=== PATIENT | female | born 1945 | race Caucasian/White ===

== ENCOUNTER → 2021-03-05 11:41 | Outpatient (CLI) | payer MEDICARE, SELFPAY ==
--- NOTE | 2021-03-05 11:50 | DI.MG.S_ITS ---
BILATERAL DIGITAL SCREENING MAMMOGRAM 3D/2D WITH CAD: 03/05/2021 CLINICAL: Routine screening. Comparison is made to exams dated: 04/07/2019 mammogram, 03/31/2018 mammogram, and 11/13/2014 mammogram - outside location. The tissue of both breasts is heterogeneously dense. This may lower the sensitivity of mammography. Current study was also evaluated with a Computer Aided Detection (CAD) system. No significant masses, calcifications, or other findings are seen in either breast. There has been no significant interval change. IMPRESSION: NEGATIVE There is no mammographic evidence of malignancy. A 1 year screening mammogram is recommended. This exam was interpreted at Station ID: [id number]. NOTE: For mammograms, a report in lay terms will be sent to the patient. Approximately 15% of breast malignancies will not be visualized mammographically. In the management of a palpable breast mass, a negative mammogram must not discourage biopsy of a clinically suspicious lesion. Electronically Signed By: Keron [email or web address]/[email or web address]:03/05/2021 12:42:35 letter sent: Normal Exam ACR BI-RADS Category 1: Negative 3341F
== END ==
PROVIDERS: PCP Internal Medicine; Referring Provider Internal Medicine; Visit Provider Internal Medicine
DX: Z12.31 Encounter for screening mammogram for malignant neoplasm of breast (principal)
CPT/HCPCS: 77063; 77067

== ENCOUNTER → 2022-03-06 07:32 | Outpatient (CLI) | payer MEDICARE, SELFPAY ==
--- NOTE | 2022-03-06 | DI.MG.S_ITS ---
BILATERAL DIGITAL SCREENING MAMMOGRAM 3D/2D WITH CAD: 03/06/2022 CLINICAL: Routine screening. Comparison is made to exams dated: 03/05/2021 mammogram - [facility], 04/07/2019 mammogram, and 03/31/2018 mammogram - outside location. The tissue of both breasts is heterogeneously dense. This may lower the sensitivity of mammography. Current study was also evaluated with a Computer Aided Detection (CAD) system. No significant masses, calcifications, or other findings are seen in either breast. There has been no significant interval change. IMPRESSION: NEGATIVE There is no mammographic evidence of malignancy. A 1 year screening mammogram is recommended. This exam was interpreted at Station ID: [id number]. NOTE: For mammograms, a report in lay terms will be sent to the patient. Approximately 15% of breast malignancies will not be visualized mammographically. In the management of a palpable breast mass, a negative mammogram must not discourage biopsy of a clinically suspicious lesion. Electronically Signed By: Keron [email or web address]/fadia:03/06/2022 16:17:53 letter sent: Normal Exam ACR BI-RADS Category 1: Negative 3341F
== END ==
PROVIDERS: PCP Internal Medicine; Referring Provider Internal Medicine; Visit Provider Internal Medicine
DX: Z12.31 Encounter for screening mammogram for malignant neoplasm of breast (principal)
CPT/HCPCS: 77063; 77067

== ENCOUNTER → 2022-12-16 11:46 | Outpatient (CLI) | payer MEDICARE, SELFPAY ==
[2022-12-16 12:29] LABS: Add Manual Diff / Slide Review NO; Basophils Absolute Auto 100 /uL (0-100); Eosinophils Absolute Auto 500 /uL (0-450); Eosinophils Percent Auto 7.5 % (2-4); Hematocrit 40.5 % (36-46); Hemoglobin 13.8 g/dL (12.0-16.0); Lymphocytes Absolute Auto 1800 /uL (1100-4500); Lymphocytes Percent Auto 26.9 % (25-40); Mean Corpuscular HGB Conc 34.2 % (30-36); Mean Corpuscular Hemoglobin 30.8 PG (26-34); Monocytes Absolute Auto 700 /uL (0-900); Monocytes Percent Auto 10.7 % (3-14); Neutrophils Absolute Auto 3600 /uL (1500-7000); Neutrophils Percent Auto 53.9 % (50-75); Platelet Count 353 X10^3/uL (150-400); Red Cell Distribution Width 13.2 % (11.6-14.8); White Blood Cell Count 6.8 X10^3/uL (4.5-11.0)
[2022-12-16 12:37] LABS: Prothrombin Time 11.5 SECONDS (10.1-12.7)
[2022-12-16 12:38] LABS: Appearance Urine UA CLEAR; Bilirubin Urine UA NEGATIVE (NEGATIVE); Color Urine UA YELLOW; Glucose Urine UA NEGATIVE (Negative); Ketones Urine UA NEGATIVE (NEGATIVE); Leukocyte Esterase Urine UA NEGATIVE (NEGATIVE); Nitrite Urine UA NEGATIVE (Negative); Occult Blood Urine UA NEGATIVE (Negative); Protein Urine UA NEGATIVE (Negative); Specific Gravity Urine UA 1.025 (1.000-1.035); Urobilinogen Urine UA 0.2 E.U./dL (0.2)
[2022-12-16 12:40] LABS: PTT Partial Thromboplastin Tim 29 SECONDS (26-36)
[2022-12-16 12:48] LABS: Alanine Aminotransferase 20 IU/L (<35); Albumin 4.4 g/dL (3.5-5.0); Albumin Globulin Ratio 1.3 (1.0-2.8); Alkaline Phosphatase 77 U/L (38-126); Aspartate Aminotransferase 25 IU/L (14-36); BUN Creatinine Ratio 26.8 (6-22); Bilirubin Total 0.6 mg/dL (0.2-1.3); Blood Urea Nitrogen 30 mg/dL (7-17); Calcium 9.6 mg/dL (8.4-10.2); Carbon Dioxide 26 mmol/L (22-32); Chloride 104 mmol/L (98-107); Estimated Glomerular Filt Rate 51 mL/min (>60); Globulin 3.4 g/dL (1.7-4.1); Glucose 84 mg/dL (80-110); HEMOLYSIS < 15 (0-50); Potassium 5.1 mmol/L (3.4-5.1); Sodium 138 mmol/L (137-145); Total Protein 7.8 g/dL (6.3-8.2)
[2022-12-16 12:56] LABS: Bacteria Urine None Seen; Culture Indicated Urine Cult Not Indicated; Hyaline Casts Urine 1-5/LPF; RBC Urine None Seen (0-5/HPF); Squamous Epithelial Cell Urine 5-10 /HPF (0-5/HPF); WBC Urine 1-5/HPF (0-5/HPF); pH Urine UA 5.5 (4.5-8.0)
[2022-12-16 14:23] LABS: Hemoglobin A1C% w Est Avg Glu 5.8 % (4.0-6.0)
== END ==
PROVIDERS: PCP Internal Medicine; Referring Provider Orthopaedic Surgery; Visit Provider Orthopaedic Surgery
DX: Z01.818 Encounter for other preprocedural examination (principal); Z51.81 Encounter for therapeutic drug level monitoring; R73.9 Hyperglycemia, unspecified; Z01.812 Encounter for preprocedural laboratory examination; N39.0 Urinary tract infection, site not specified
CPT/HCPCS: 36415; 80053; 81001; 83036; 85025; 85610; 85730; 93005; 93010

== ENCOUNTER 2023-01-19 12:57 | Day surgery (SDC) | payer MEDICARE, SELFPAY ==
[2023-01-06 08:44] VITALS: BMI 29.0
[2023-01-19] VITALS (14 sets, daily range): BP systolic 98–178; BP diastolic 41–88; PULSE 66–84; RESP 14–20; TEMP 35.7–36.2; O2SAT 95–99; BMI 28.5
--- NOTE | 2023-01-19 06:00 | DI.RAD.S_ITS ---
PROCEDURE: XR HIP W PEL IF DONE RT 2V INDICATIONS: prosthesis placement TECHNIQUE: 2 intraoperative fluoroscopic views of pelvis and right hip were acquired. COMPARISON: None. FINDINGS: Intraoperative fluoroscopic images shows right total hip arthroplasty in progress. Right hip alignment is anatomic. IMPRESSION: Fluoro guidance was provided intraoperatively for right total hip arthroplasty. Dictated by: Saw Leach M.D. on 01/19/2023 at 17:47 Approved by: Saw Leach M.D. on 01/19/2023 at 17:48
[2023-01-19] MEDS: VANCOMYCIN 1,000 MG/200 ML PIGGYBACK 200 MG IV (13:26)
[2023-01-19] MEDS: LACTATED RINGERS 1,000 ML 42 ML IV ×2 (13:29→16:25)
[2023-01-19] MEDS: ACETAMINOPHEN 325 MG TABLET 975 MG PO (13:29)
[2023-01-19] MEDS: CELECOXIB 200 MG CAPSULE PO (13:29)
[2023-01-19] MEDS: PREGABALIN 75 MG CAPSULE PO (13:29)
--- NOTE | 2023-01-19 14:00 | PM.PREOP ---
Pre-operative Note Interval Note History & Physical reviewed/Exam performed by Physician: Yes Changes to H&P: No
--- NOTE | 2023-01-19 14:01 | P.OP_ITS ---
Operative Date/Time/Diagnoses Date of procedure: 01/19/23 Time of procedure: 14:30 Pre-op diagnosis: right hip OA, severe scoliosis lumbar Post-op diagnosis: same Procedure & Clinicians Procedure: Right total hip arthroplasty anterior approach Same procedure as scheduled: Yes Indications: The patient has had progressively worsening right hip pain with radiographic changes consistent with arthritis. Non-operative management has failed and the patient has requested total hip replacement. The risks, benefits and alternatives to surgery were discussed with the patient prior to proceeding. She is a complicated patient as she has a severe scoliosis and decreased range of motion into her lumbar spine. The plan is for probable dual mobility because of anticipated higher than normal risk for postoperative instability. Risks discussed included, but were not limited to, failure to relieve pain, leg length discrepancy, dislocation, stiffness, infection, nerve damage, deep venous thrombosis, pulmonary embolism, stroke, coma, heart attack, permanent paralysis and , as well as the potential need for eventual revision of the prosthet ic. Surgeon: Leela Barrios Boiler Coverer: Shyanne Wood Anesthesia Type: General and Spinal Operative Notes Findings: Severe right hip osteoarthritis, soft bone, adequate stability Closure Type: primary Specimen(s): none sent Prosthetic devices, grafts, tissues, transplants, or devices: Barrios and nephew anthology size 5 standard offset, 52 mm R3 cup, 28 x -3 dual mobility, 40 x 52 mm Oxinium head, one 6.5 mm screw Estimated Blood Loss (mL): 250 Blood products transfused: none Procedure in detail: The patient was brought to the operating room. Patient was carefully positioned in the supine position. Time-out was performed and antibiotics were given. Anest hesia was induced. She was positioned in the on the table in order to allow hyperextension of the hip. The right lower extremity was prepped and draped in a standard sterile fashion. An anterior right hip incision was made 1 fingerbreadth lateral to the anterior superior iliac spine and extended distally towards the greater trochanter. Dissection was carried out through skin and subcutaneous tissues. Superficial hemostasis was achieved. The fascia over the tensor fascia keily was defined and incised with a knife. Two Allis clamps were used to grasp the fascia. Tensor fascia keily was retracted laterally. A gelpi retractor was placed. Dissection was carried out down along the neck. The circumflex vessels were carefully identified and cauterized with the Aqua Mantis. There was good visualization of the femoral neck. A Cobra was placed superior to the neck and the gluteus fibers were carefully stripped from that superior aspect of the capsule. A 2nd retractor was placed along the inferior aspect of the neck. The rectus insertion along the capsule was partially released. A 3rd retractor that was then gently placed over the rim of the acetabulum under the rectus. Capsule was carefully incised and released from the intertrochanteric line circumferentially superior to the mid sagittal line and inferiorly to the mid sagittal line until the lesser trochanter was palpable. A tag stitch was placed both in the superior and inferior limb of the capsular insertion. Along the acetabulum capsule was also released up to the mid sagittal 12:00 position. A portion of the labrum was resected. A saw was used to perform an osteotomy at the level of the intertrochanteric line and the junction of the superior femoral neck leaving approximately 1 finger breath of residual inferior neck above the lesser trochanter. A 2nd cut was made along the femoral neck at the base of the head and a napkin ring of neck was removed. Corkscrew was placed in the femoral head and the head was removed without difficulty. Retractors were then repositioned around the acetabulum. Residual labrum was resected and additional osteophytes were removed. A reamer that was 4 mm below the templated size was placed by hand in the acetabulum and it was reamed to centralize the acetabulum. It was then reamed up to 2 under the templated size and fluoroscopy was brought in to confirm the position of the reaming and depth of reaming. I reamed 1 under the anticipated size. A trial cup was placed and noted that it was appropriately sized and fluoroscopy confirmed position and depth. The component was open and inserted without difficulty fluoroscopic imaging was used to confirm that the cup had been adequately seated and was well positioned. It was further stabilized with a single screw. Dual mobility liner was placed. The cup was tested and noted to be stable. Attention was then directed to the femur. The femur was gently hyperextended additional capsular release was performed as needed in order to allow adequate visualization of the proximal femur with elevation of the femur. Patient was placed in a hyperextended slightly adducted position with maximum external rotation. Box osteotome was used to check for any residual neck as well as sclerotic bone along the trochanter. [place] pepper was placed in the femur. Additional broaching was performed. Canal finder was used to determine the alignment of the canal and position. Size 1 broach was placed. The canal was then appropriately broached up to the templated size as long as there was adequate stability of the broach and serial advancement of the broach without excessive impingement. Specific attention was directed at avoiding varus attempting to direct the distal aspect of the broach more anteriorly and avoiding excessive anteversion. Trial reduction showed acceptable range of motion, good stability, no posterior impingement, mu-ism of leg length and appropriate lateral shuck. I also hyperflexed the hip and checked that there was no impingement anteriorly and there was good stability with flexion, adduction and internal rotation. I meticulously checked both stability as well as any potential areas of impingement. I also carefully looked at offset. We initially attempted to do a closed reduction with the extended offset but it was clearly too much offset. The x-rays looked like we would restored her [place] offset. She had excellent stability inches placed through a range of motion and there was no evidence of impingement. Marcaine and Exparel were injected. The stem was placed without difficulty. R epeat trial reduction and x-ray showed acceptable overall position, length, and no evidence of the femoral fracture. Final head was placed. Wound was meticulously irrigated with normal saline. The hip was reduced and additional Exparel and Marcaine were injected. The capsule was closed with interrupted nonabsorbable sutures. The fascia of the tensor was closed with interrupted and running Vicryl. No drain was placed. Any tensor fascia keily muscle that appeared to be contused or injured which was a minimal amount was carefully resected. Capsule around the tensor was injected with Exparel and Marcaine. The skin was closed with barbed stitches for the subcutaneous tissue and skin. We also used surgical glue. The wound was dressed sterilely. Brief Betadine soak was also used and was meticulously irrigated with normal saline. Patient was transferred to recovery room in satisfactory condition. Complications: none Post-operative Condition: stable Disposition: Acute Care Plan for aftercare: The patient will be maintained on a standard total hip replacement protocol with weight bearing as tolerated and anterior hip precautions. The patient will receive Aspirin and sequential compression devices for DVT prophylaxis. The patient will be discharged home when safe for the home environment.
[2023-01-19] MEDS: CEFAZOLIN 2 GM/100 ML PREMIX 100 ML IV ×2 (14:48→23:27)
[2023-01-19] MEDS: TRANEXAMIC ACID 1,000 MG VIAL 1000 MG INJ ×2 (14:50→17:05)
--- NOTE | 2023-01-19 15:15 | SUR.OPER ---
Patient supine on padded [place] table, one arm on padded arm board at <90, other arm padded and secured with tape across patient's chest, both legs secured in padded traction boots and positioned per surgeon, padded post at patient's groin, pressure points checked and padded. Feet are wrapped in cast padding and coban.
[2023-01-19] MEDS: BUPIVACAINE LIPOSOME 266 MG/20 ML VIAL INJ (15:27)
[2023-01-19] MEDS: BUPIVACAINE 0.25% (PF) 60 ML, EPINEPHrine 0.3 MG INJ (15:29)
[2023-01-19] MEDS: SODIUM CHLORIDE IRRIG SOLUTION 250 ML, POVIDONE-IODINE SPONGE STICKS 1 APPLIC IRR (15:31)
--- NOTE | 2023-01-19 15:40 | SUR.OPER ---
Patients glasses brought with patient to OR, placed in black glass case with patient label. Then brought with patient to PACU.
--- NOTE | 2023-01-19 17:40 | DI.RAD.S_ITS ---
PROCEDURE: XR HIP W PEL IF DONE RT 2V INDICATIONS: RIGHT HIP ANTERIOR TECHNIQUE: AP pelvis and lateral view of the right hip acquired. COMPARISON: [facility], CR, XR HIP W PEL IF DONE RT 2V, 01/19/2023, 16:01. [facility] [place], CR, XR PELVIS WITH LATERAL HIP RIGHT, 10/28/2022, 14:46. FINDINGS: Bones: Patient is status post right total hip arthroplasty, with hardware components in expected positions. The hip joint appears congruent. The visualized bony structures appear intact. Soft tissues: Overlying postoperative changes are noted. No suspicious soft tissue densities. Surgical clips are seen projecting over the pelvis. IMPRESSION: Status post right total hip arthroplasty with expected postoperative findings. Approved by: Reji Perez M.D. on 01/19/2023 at 18:10
[2023-01-19] MEDS: HYDROMORPHONE 2 MG INJ IV (17:48)
[2023-01-19] MEDS: ONDANSETRON 4 MG/2 ML INJ IV ×2 (17:52→18:52)
[2023-01-19] MEDS: HYDROCODONE/ACET 5/325 TABLET 1 TAB PO (17:59)
[2023-01-19] MEDS: hydrOXYzine 50 MG/ML INJ 25 MG IM (18:05)
--- NOTE | 2023-01-19 18:37 | PC.NURSE ---
pt arrived from PACU c/o 07/11 pain to R hip. SBP 170'-180's. She is A&OX3, on RA. She reports full sensation to BLE's, Dressing to R hip aqaucel c/d/i. +cms to BLE. She is oriented to room. Although she states her allergy is nausea to narcotics. She had received a percocet in the PACU and denies any current n/v. LR at 125ml/hr. Hip precautions reviewed. She reports last void at approximately 1330 this afternoon. notified of hypertension, patient states she did not take her BP meds this a.m.
[2023-01-19] MEDS: IBUPROFEN 400 MG TABLET PO ×2 (18:42→23:27)
[2023-01-19] MEDS: ACETAMINOPHEN 325 MG TABLET 650 MG PO ×2 (18:42→23:27)
[2023-01-19] MEDS: LACTATED RINGERS 1,000 ML 125 ML IV (18:52)
[2023-01-19] MEDS: hydrOXYzine pamoate 25 MG CAPSULE PO (19:41)
[2023-01-19] MEDS: lisinopriL 20 MG TABLET 40 MG PO (19:41)
[2023-01-19] MEDS: SPIRONOLACTONE 25 MG TABLET PO (20:28)
[2023-01-19] MEDS: ASPIRIN EC 81 MG TABLET PO (20:28)
[2023-01-19 20:36] LABS: COVID19 -Nasal RAPID Negative (Negative)
[2023-01-20 00:13] VITALS: BP 154/67; PULSE 77; RESP 18; TEMP 36.3; O2SAT 98
[2023-01-20 04:00] VITALS: BP 146/65; PULSE 68; RESP 17; TEMP 35.8; O2SAT 95
[2023-01-20] MEDS: PANTOPRAZOLE DR 20 MG TABLET PO (05:30)
[2023-01-20] MEDS: ACETAMINOPHEN 325 MG TABLET 650 MG PO ×2 (05:30→12:37)
[2023-01-20] MEDS: IBUPROFEN 400 MG TABLET PO ×2 (05:30→12:36)
[2023-01-20] MEDS: LEVOTHYROXINE 100 MCG TABLET PO (05:30)
[2023-01-20 06:02] LABS: Hematocrit 35.2 % (36-46); Hemoglobin 11.9 g/dL (12.0-16.0)
[2023-01-20] MEDS: CEFAZOLIN 2 GM/100 ML PREMIX 100 ML IV (06:32)
--- NOTE | 2023-01-20 07:51 | PM.DS.1 ---
History of Present Illness History of Present Illness Date Patient Seen: 01/20/23 Time Patient Seen: 07:51 Chief complaint: OPB Narrative: Patient is lying comfortably in bed this morning. She states that while she is not moving she has no pain to the hip. She notes mild pain when getting up to the commode. She is not needed any narcotic pain medication at this point. She would like to discharge home after working with physical therapy today. Denies calf pain, chest pain, shortness of breath. Complains of some nausea but no vomiting, requested antinausea medication to be sent to her pharmacy upon discharge. Discharge Providers Provider Discharge Date: 01/20/23 Primary care physician: Lianne Sanchez MD Consults: 01/06/23 09:53 Consult to Anesthesiology Routine Comment: Consulting Provider: Anesthesiologist Reason for consultation: PAC Courtesy re: Abnormal pre-op EKG 01/19/23 06:00 Consult to Anesthesiology Routine Comment: Consulting Provider: Anesthesiologist Reason for consultation: Regional block for post operative pain control 01/19/23 18:15 Consult to Discharge Planning Routine Comment: Consult to Physical Therapy Evaluate & Treat Comment: Physician Instructions: post op RICK protocol Discharge provider: Vashti Resendez PA-C Summary Hospital Course Discharge Diagnosis: Status post right total hip arthroplasty, anterior approach Hospital Course: Operative Date/Time/Diagnoses Date of procedure: 01/19/23 Time of procedure: 14:30 Pre-op diagnosis: right hip OA, severe scoliosis lumbar Post-op diagnosis: same Procedure & Clinicians Procedure: Right total hip arthroplasty anterior approach Same procedure as scheduled: Yes Indications: The patient has had progressively worsening right hip pain with radiographic changes consistent with arthritis. Non-operative management has failed and the patient has requested total hip replacement. The risks, benefits and alternatives to surgery were discussed with the patient prior to proceeding.? She is a complicated patient as she has a severe scoliosis and decreased range of motion into her lumbar spine.? The plan is for probable dual mobility because of anticipated higher than normal risk for postoperative instability.? Risks discussed included, but were not limited to, failure to relieve pain, leg length discrepancy, dislocation, stiffness, infection, nerve damage, deep venous thrombosis, pulmonary embolism, stroke, coma, heart attack, permanent paralysis and , as well as the potential need for eventual revision of the prosthetic. Surgeon: Leela Barrios Warehouse Shipping Supervisor: Shyanne Wood Anesthesia Type: General and Spinal Operative Notes Findings: Severe right hip osteoarthritis, soft bone, adequate stability Closure Type: primary Specimen(s): none sent Prosthetic devices, grafts, tissues, transplants, or devices: Barrios and nephew anthology size 5 standard offset, 52 mm R3 cup, 28 x -3 dual mobility, 40 x 52 mm Oxinium head, one 6.5 mm screw Estimated Blood Loss (mL): 250 Blood products transfused: none Status at Discharge Cognitive/behavioral status at discharge: oriented Functional status at discharge: uses cane/walker Overall status at discharge: patient is progressing back to baseline Exam Vital Signs (past 8 hours): - 01/20/23 00:13 01/20/23 04:00 Temperature 97.3 F L 96.4 F L Pulse Rate 77 68 Respiratory Rate 18 17 Blood Pressure 154/67 H 146/65 H Pulse Oximetry 98 95 Oxygen Flow Rate 0 0 Oxygen Delivery Method Room Air Oxygen Flow Rate 0 Narrative Exam Narrative: Pleasant 77-year-old female. Awake, alert, and oriented. Intraoperative Aquacel bandage clean, dry, and intact. Strength and sensation intact to bilateral lower extremities. Bilateral calf soft, compressible, nontender with no palpable cords or masses. Objective Labs 01/20/23 05:28 Labs: Laboratory Results - last 24 hr 01/19/23 01/20/23 20:05 05:28 Hgb 11.9 L Hct 35.2 L SARS-CoV-2 (PCR) Negative [facility] Medical History COVID-19 (06/2022) GERD (gastroesophageal reflux disease) Grieving Hepatitis C (1998) HLD (hyperlipidemia) HTN (hypertension) Hypothyroidism Sciatica Surgical History History of hysterectomy (1984) Hx of appendectomy (1958) Hx of bilateral cataract extraction Hx of dilation and curettage (1965) Hx of tonsillectomy Social History household members: none Smoking Status: Never smoker alcohol intake: current Discharge Assessment & Plan Assessment and Plan Assessment: Patient is progressing as expected after right total hip arthroplasty, anterior approach. Plan of Treatment: Plan to discharge to home once safe and cleared by Physical therapy today. Discharge Plan Discharge Plan Patient Disposition: Home Discharge orders & Medications Discharge Orders: Discharge (Order); Ordered 01/20/23 Ordered By: Vashti Resendez Prescriptions: New ondansetron 4 mg Tablet,Disintegrating 4 mg PO Q4HR PRN (Reason: Nausea) Qty: 20 0RF Continued meloxicam 15 mg Tablet 15 mg PO BEDTIME lisinopril 20 mg Tablet 40 mg PO QAM spironolactone 25 mg Tablet 25 mg PO BEDTIME levothyroxine 100 mcg Tablet 100 mcg PO DAILY Patient Comments: Takes 2 tabs one day a week on Wednesday omeprazole 20 mg Capsule,Delayed Release(Dr/Ec) 20 mg PO DAILY estradiol 0.5 mg Tablet 0.5 mg PO DAILY Rx Instructions: off 5 days; repeat cycle Follow up/Referrals: Lianne Sanchez MD [Primary Care Provider] - Leela Barrios MD [Physician] - As previously scheduled Diet/Activity/Treatments Diet: Diet as Tolerated Other treatments: Medications: -Aspirin 81mg twice daily x6 weeks to prevent blood clots. -OTC Tylenol 500 mg 1 tablet every 4 hours as needed for pain/fever. Max 6 tablets per day. -Ibuprofen 400 mg 1 tablet every 4 hours as needed for pain/inflammation. Max 2,400 mg per day. -As needed medications: -Ducolax and /or MiraLax as needed for constipation from narcotic pain medications. -Pepcid AC as needed for stomach upset (usually from aspirin or ibuprofen). Dressing/Wound care: -Keep Aquacel dressing in place until postoperative follow-up office visit. -Okay to shower. Keep wound out of direct water stream. No soaking or submerging until all the scabs fall off (approximately 6 weeks). -No lotions, ointments, or scar creams directly to the incision until the wound is healed (4-6 weeks), -Please call the office if dressing becomes wet, soiled, or saturated. Activities: -Maintain anterior hip precautions x6 weeks. -Walk frequently: approximately 5-10 minutes every hour. -Weight-bearing as tolerated. Use front wheeled walker, and progress to cane when safe. -Continue with home exercises as directed by your physical therapist. -Elevate ?toes above the nose if you have significant swelling in your lower leg. (A wedge pillow is easiest.) -Ice your incision as needed for pain/inflammation/swelling. Protect your skin with a folded pillowcase. Follow-up: -Follow-up with your surgeon or PA in the office in 10-14 days after surgery. -Follow-up with your surgeon 6 weeks postoperatively. Call the office if you have chest pain, shortness of breath, significant swelling that will not resolve with elevating, fever over 101?, significantly worsening pain, or are concerned you might need to go to the Emergency Room. [facility]: [phone] Skin/Wound/Dressing Care Report to your healthcare provider any signs of infection, such as:: chills, fever, night sweats, increased pain, unusual drainage and unusual redness Visit Report/Discharge Packet Instructions: DI for Hip Replacement Stand Alone Forms: Patient Portal/API, Surgery Discharge Discharge Data Primary Care Provider: Lianne Sanchez Attending Provider: Leela Barrios VTE Deep Vein Thrombosis/Pulmonary Embolism Present on Admission: No
[2023-01-20 08:29] VITALS: BP 114/54; PULSE 71; RESP 19; TEMP 36.1; O2SAT 98
[2023-01-20] MEDS: ASPIRIN EC 81 MG TABLET PO (09:17)
[2023-01-20 09:18] VITALS: BP 114/54
[2023-01-20] MEDS: lisinopriL 20 MG TABLET 40 MG PO (09:18)
[2023-01-20] MEDS: estradioL 1 MG TABLET 0.5 MG PO (09:18)
--- NOTE | 2023-01-20 09:19 | PT.IIE ---
Current Diagnoses Other unilateral secondary osteoarthritis of hip (01/19/23) Surgery Performed Operation Date: 01/19/23 14:15 Actual Procedures p Total Hip Arthroplasty/Anterior Approach(Right) - Leela Barrios MD Surgical History (Last Reviewed 01/20/23 @ 07:55 by Vashti Resendez PA-C) History of hysterectomy (1984) Hx of appendectomy (1958) Hx of bilateral cataract extraction Hx of dilation and curettage (1965) Hx of tonsillectomy Medical History (Last Reviewed 01/20/23 @ 07:55 by Vashti Resendez PA-C) COVID-19 (06/2022) GERD (gastroesophageal reflux disease) Grieving Hepatitis C (1998) HLD (hyperlipidemia) HTN (hypertension) Hypothyroidism Sciatica Physical Therapy Inpatient Evaluation/Re-Eval M1 PT/OT-IP Prior Functional Status Start: 01/20/23 09:27 Freq: NEEDED Status: Active Protocol: Document 01/20/23 09:19 DLSkinny (Rec: 01/20/23 09:42 DL [id number]) Medical Review Prior Functional Status Medical History Reviewed Yes Diet/Fluid Consistency Regular Communication WNL Mobility and Gait Independent Activities of Daily Living and IADL's Independent, family helps with cleaning of house as needed due to patients back pain Social History Household Members none Living Arrangements House Number of Floors (Floors) One Floor Number of Stairs To Enter/Railing? 2 steps to enter, one is a larger platform type step Home Environment Standard Height Toilet,Walk in Shower,Tub/Shower Home Equipment Front Wheel Walker,Straight Cane,Shower Seat without Backrest,Grab Bars In Shower Employment Status Retired M2 PT-IP Current Condition Start: 01/20/23 09:27 Freq: NEEDED Status: Active Protocol: Document 01/20/23 09:19 DLSkinny (Rec: 01/20/23 09:42 DL [id number]) Physical Therapy Current Condition Current Condition Evaluation Date 01/20/23 Treatment Diagnosis right RICK with anterior approach Onset Date 01/19/23 M3 PT-IP Subjective Start: 01/20/23 09:27 Freq: NEEDED Status: Active Protocol: Document 01/20/23 09:19 DLSkinny (Rec: 01/20/23 09:42 DL [id number]) Subjective Physical Therapy Visit Type Type Initial Evaluation Visit Start Time 08:45 Visit Stop Time 09:19 Total Visit Minutes 34 Number of LMFT Visits 0 Physical Therapy Visit Comments Patient Comments She does not want to go anywhere but home at discharge Patient Goals discharge home with family assist Therapy Pain Assessment Pain When Pain Assessed After Treatment Pain Present Pain Present Pain Reported Location Right Hip Intensity 3 Scale Used Numeric (0 - 10) Description Aching,With Movement Pain Management Techniques Re-positioning M4 PT-IP Mobility and Gait Start: 01/20/23 09:27 Freq: NEEDED Status: Active Protocol: Document 01/20/23 09:19 DLM (Rec: 01/20/23 09:42 DLM [id number]) PT-Bed Mobility Assessment Sit to Supine Sit to Supine Standby Assistance Scooting Scooting to Edge of Bed Independent Scooting Up and Down in Bed Independent PT-Transfer Assessment Sit to and From Stand Sit to and from Stand Standby Assistance,Use of Upper Extremities Equipment Transfer Assistive Device Gait Belt,Front Wheeled Walker Transfers Transfer Destination Bed,Chair Transfer Technique Stand Step Pivot Transfer Ability Level of Assist Standby Assistance,Use of Upper Extremities Comments Mobility Comments She needs reminders to keep FWW with her at all times and stay inside of it. She needed education to use UE's to assist with sit-stand to manage safety and hip pain. Gait Assessment Gait Gait Assistance Required: Standby Assistance Distance (Feet) 150 Able to Maintain Weight Bearing Status Yes During Gait Assistive Devices Assistive Device Gait Belt,Front Wheeled Walker Gait Deviations General Gait Pattern Antalgic Factors Limiting Gait Function Factors Limiting Gait Function Decreased Activity Tolerance, Decreased Strength,Limited Range of Motion,Pain Comments Gait Comments Educated pt in safe us of the FWW. She is not needing to use signficant UE support on the FWW to manage her hip pain during weight bearing at this time. She is primarily using the FWW for balance. Stair Climbing Assessment Evaluation Level of Assist On Stairs Standby Assistance Devices Stair Climbing Assistive Devices Front Wheel Walker Technique/Endurance Stair Climbing Direction Ascend and Descend Stair Climbing Technique Step to Step Number of Steps Climbed 1 Query Text: Stair Climbing Set # Repetitions (reps) 1 Comments Stair Climbing Comments assisted pt to manage the fWW on the step to manage her back pain, educated pt to get feet close to step before stepping up and to manage sequencing of LE's PT-Balance Assessment Sitting Balance and Reactions Static Sitting Balance Ability Normal Dynamic Sitting Balance Ability Normal Standing Balance and Reactions Static Standing Balance Ability Good Dynamic Standing Balance Ability Good Device Used FWW M5 PT-IP Objective Assessments Start: 01/20/23 09:27 Freq: NEEDED Status: Active Protocol: Document 01/20/23 09:19 DLM (Rec: 01/20/23 09:42 DLM [id number]) Orientation Orientation/Cognition Level of Alertness Alert Orientation Name,Age,Birthday,Month,Date, Year,Day of Week,Place, Situation Language Function Ability No Deficits Noted Safety Awareness Understands Safety Issues Memory Description No Deficits Noted Gross Range of Motion Upper Extremity ROM Assessment Within Functional Limits Lower Extremity ROM Assessment Right Impaired Impairments post-op anterior hip precautions Strength Upper Extremity Strength Assessment Within Functional Limits Lower Extremity Strength Assessment Right Impaired Hip hip flex 3-/5 Knee 4/5 Ankle DF 5/5 Coordination Assessment Gross Coordination Gross Coordination WNL Sensation Assessment Sensation Gross Sensation WNL Muscle Tone Muscle Tone WNL Yes M6 PT-IP Treatment Start: 01/20/23 09:27 Freq: NEEDED Status: Active Protocol: Document 01/20/23 09:19 DLM (Rec: 01/20/23 09:42 DL [id number]) Physical Therapy Treatment Exercises Exercises Ankle Pumps,Gluteal Sets,Quad Sets,Heel Slides Education Education Provided Precautions,Weight Bearing Status,Post-Op Packet,Safety Other Treatments Other Treatment Performed no family present this visit M7 PT-IP Assessment and Plan Start: 01/20/23 09:27 Freq: NEEDED Status: Active Protocol: Document 01/20/23 09:19 DLM (Rec: 01/20/23 09:42 DL [id number]) PT Summary Assessment and Plan Potential Rehabilitation Potential Excellent Status of Condition at Evaluation Evolving Summary Impairments Pain,ROM,Strength,Balance,Bed Mobility,Transfers,Gait, Activity Tolerance Assessment Summary Clementina is progressing well post-op day one anterior RICK. She has no dizziness/light- headedness when up moving. She has been up to the recliner today. She tolerated gait in the nobles well. Educated pt in her anterior hip precautions and provided written home information. Pt reports she has a fWW to use at discharge. She plans to have family assist after discharge. She appears safe to discharge home when she is medically cleared . Will continue to progress her gait and exercises while she is hospitalized. Goals Bed Mobility Goal Independent Transfer Goal Independent,Front Wheeled Walker Gait Goal Independent,Front Wheel Walker Gait Distance 200 feet Other Goals up/down 2 steps with FWW and CG/min assist Days to Meet Goals 2 Frequency of Treatment Frequency Of Treatment Twice a Day Treatment Plan Physical Therapy Treatment Plan Bed Mobility Training,Transfer Training,Gait Training, Therapeutic Exercise,Balance Retraining,Post Op Education, Discharge Planning,Hot or Cold Pack,Neuromuscular Re-ed Precautions Anterior Hip Precautions No Hip Extension,No Hip External Rotation Other Precautions manage her chronic back pain with scoliosis Weight Bearing Status Weight Bearing Status Weight Bear as Tolerated Allowed Weight Bearing Amount (enter % right LE or #) (%) Recommendations To Nursing Amount of Assist Needed 1 Person Assist Discharge Recommendations PT Discharge Recommendations Home with Assistance Other Discharge Recommendations she reports having family to assist at home safe to discharge home when medically cleared Transportation Needs at Discharge Private Vehicle
--- NOTE | 2023-01-20 13:52 | PC.NURSE ---
Patient received discharge instructions. [facility] Reviewed s/s of infection. Discussed pain management and not to exceed 3000mg of tylenol in a 24 hr period. Instructed pt on new med ondansetron. pt discharged to home with family member driving.
--- NOTE | 2023-01-20 14:46 | CM.DANOTE ---
DCP/Assessment: Reviewed chart. Patient is a 77yr old female admitted for elective right hip surgery. PCP is Lianne Sanchez. Primary payor is 1)Medicare 2)[employer]. Met with patient this AM explained CM/SW role. Patient reports that she is going home today. Patient having another visit from therapy prior to her departure. Patient denies any d/c planning needs and reports that she has family assisting around the clock. Patient will be following up with outpatient therapy next week. Patient has all needed DME. Currently patient without any d/c planning needs. [facility] Discharge Planning/Care Management CM Discharge Assessment Start: 01/20/23 14:44 Freq: Status: Active Protocol: Document 01/20/23 14:44 KJS (Rec: 01/20/23 14:46 KJS [id number]) Discharge Planning Assessment Assigned Railroad Watchman ORTEGA Walker DPOA/Assigned Designee Name None listed, patient does have sister coming to assist next week. Advance Directives? Yes Advance Directives on File No History Provided By Patient,Medical Record Has Patient been admitted in last 30 No days? Prior Living Arrangements House Household Members none Type of transporation used prior to Drives own vehicle admit Comment Prior to admit drives at baseline Independent with ADL's Yes Is patient alert and oriented? Yes Caregiver for Another No DME Already Rented / Owned FWW / Walker Patient/Family Preference OP PT Therapy Barriers to Discharge No Discharge Plan Home Transportation Arrangement Family to provide transport. Referrals Initiated None needed Whiteboard Updated in Patient Room with Yes name and ext. # of Railroad Watchman Review Status In Process Next Review Type Continued Stay Review Pre-Anesthesia Assessment Start: 01/06/23 08:44 Freq: Status: Discharge Protocol: Document 01/06/23 08:44 CAB (Rec: 01/06/23 09:53 CAB [id number]) Pre-Anesthesia Assessment Patient Information Reviewed Via Phone Assessment Assessment Completed With Patient Diagnostic Results BMP/CMP,CBC,EKG Comment Labs/EKG @ 12/16/22 Primary Care Provider Lianne Sanchez Seen Specialist in Last 12 Months Yes Specialist Seen Acupuncturist,Orthopedist Primary Language Guinean Lead Press Operator Required No Height 170.18 cm Weight 83.915 kg Body Mass Index (BMI) 29.0 Hearing Ability Normal Visual Assist Glasses Dentition Type Teeth, Natural Present Barriers to Learning None Hx Anesthesia Reactions No: Pt concerned with curvature of spine and possible spinal Hx Family Anesthesia Reaction No Hx Malignant Hyperthermia No Hx Blood Transfusions No Anesthesia Review Requested Yes: PAC courtesy re: Abnormal Pre-op EKG Environmental Field Services Technician No alcohol intake current alcohol intake frequency holidays/special occasions only Smoking Status Never smoker Substance Use Type does not use Pain Present Pain Reported Musculoskeletal Symptoms Abnormal Gait,Difficulty Walking,Joint Pain History of Falling (Recent or History of No ) Patient is completely paralyzed or No completely immobile Mental Status Oriented to own ability Is patient on oxygen? No Does patient have TYLER/SOB No Hx Sleep Apnea No Currently Taking a Beta Carolyn No Can You Climb a Flight of Stairs Without Yes SOB Hx Chest Pain No Hx SOB No Hx Syncope or Dizziness No Anti-Coagulant Therapy No Has a Power Regulator No Cardiac Testing No Hx Pacemaker/ICD No Pacemaker Rep Required? No Cardiac Clearance Received Not Applicable Diet Type At Home Regular Dysphagia No Gastrointestinal Symptoms Reflux Chronic UTI No Urinary Catheter Present No Hx Urinary Self Catheterization No Diabetes No HgbA1C 5.8 Date 12/16/22 Patient No Lactating No Presence of External or Internal Medical Yes: Brice eye IOLs Devices Have you had any close contact with No someone diagnosed with COVID-19? Received a COVID vaccine? Yes Received all doses? Yes Marital Status / Lives With none Current Living Arrangements House Number of Floors (Floors) One Floor Number of Stairs To Enter/Railing? 2 steps into house Support System Child/Children Does the Patient Have Assistance After Yes: Family will be with pt at Surgery DC to assist with care Patient Discharge Plan Description Return Home Comment Pt advised 1-2 night length of stay per surgeon Feels Safe in Current Environment Yes Been Physically Hurt or Threatened By a No Person in Current Environment Do you have thoughts of harming yourself None or others? Are you currently considering suicide? No Do you have a plan to hurt yourself or No Plan others? Do You Have Any Spiritual Beliefs That No May Affect Your HC Choices? Do You Have Any Cultural Practices That No May Affect Your HC Choices? Comment Anabaptism Who Can We Speak to About Patient's Care Family, friends Identifying Code for Release of Patient Declines to issue Information Health Care Proxy/Next of Kin Osvaldo (son) Health Care Proxy Emergency Contact Name Osvaldo (son) Emergency Contact Advance Directives? No Power of Buckle Frame Shaper No PAC Instructions Do not shave/clip surgical site,Durable medical equipment ,Medications to take/avoid, Nasal antibiotic,No ETOH/ petroleum product on skin DOS, NPO,Post-op transportation, Sturdy shoes/comfortable clothes,Do not bring valuables and remove jewelry
== END 2023-01-20 14:00 | disposition home or self-care (01) ==
LOC: OR 12:59 → AC 13:00
PROVIDERS: PCP Internal Medicine; Referring Provider Orthopaedic Surgery; Visit Provider Orthopaedic Surgery
PROC: (CPT 27130; principal; 2023-01-19 14:15)
DX: M16.11 Unilateral primary osteoarthritis, right hip (principal); M41.26 Other idiopathic scoliosis, lumbar region; Z20.822 Contact with and (suspected) exposure to COVID-19
CPT/HCPCS: 27130; 36415; 73502; 76000; 85014; 85018; 87635; 97162; C1776; C9803; C9290; J0171; J0690; J1100; J1170; J2250; J2405; J2704; J3010; J3410

== ENCOUNTER → 2023-03-10 14:26 | Outpatient (CLI) | payer MEDICARE, SELFPAY ==
[2023-01-19 18:58] VITALS: BMI 28.5
--- NOTE | 2023-03-10 | DI.MG.S_ITS ---
BILATERAL DIGITAL SCREENING MAMMOGRAM 3D/2D WITH CAD: 03/10/2023 Comparison is made to exams dated: 03/06/2022 mammogram, 03/05/2021 mammogram - [facility], and 04/07/2019 mammogram - outside location. Both breasts are heterogeneously dense, which may obscure small masses (category c / 51-75% glandular tissue). Current study was also evaluated with a Computer Aided Detection (CAD) system. No significant masses, calcifications, or other findings are seen in either breast. There has been no significant interval change. IMPRESSION: NEGATIVE There is no mammographic evidence of malignancy. A 1 year screening mammogram is recommended. Based on the Tyrer Cuzick model (a risk assessment model) the patient's lifetime risk is 2.8% and her 10 year risk is 0.0%. According to the ACR, ACS, and NCCN guidelines, an annual breast MRI exam along with mammogram is recommended if the patient's lifetime risk is 20% or greater. This exam was interpreted at Station ID: [id number]. NOTE: For mammograms, a report in lay terms will be sent to the patient. Approximately 15% of breast malignancies will not be visualized mammographically. In the management of a palpable breast mass, a negative mammogram must not discourage biopsy of a clinically suspicious lesion. Electronically Signed By: Denys valencia/fadia:03/10/2023 15:05:02 letter sent: Normal Exam ACR BI-RADS Category 1: Negative [id number]
== END ==
PROVIDERS: PCP Internal Medicine; Referring Provider Internal Medicine; Visit Provider Internal Medicine
DX: Z12.31 Encounter for screening mammogram for malignant neoplasm of breast (principal)
CPT/HCPCS: 77063; 77067

== ENCOUNTER 2023-08-19 13:58 | Emergency (ER) | payer MEDICARE, SELFPAY ==
[2023-01-19 18:58] VITALS: BMI 28.5
[2023-08-19 14:02] VITALS: BP 177/77; PULSE 75; RESP 16; TEMP 37; O2SAT 100; BMI 30.2
--- NOTE | 2023-08-19 14:08 | DI.RAD.S_ITS ---
PROCEDURE: XR KNEE LT 3V INDICATIONS: felt a pop yesterday/trouble walking TECHNIQUE: 3 views of the knee were acquired. COMPARISON: None. FINDINGS: Bones: No fractures or dislocations. No suspicious bony lesions. Soft tissues: No joint effusion. No suspicious soft tissue calcifications. IMPRESSION: No acute abnormality of the left knee. Dictated by: Carroll Martel M.D. on 08/19/2023 at 14:39 Approved by: Carroll Martel M.D. on 08/19/2023 at 14:40
--- NOTE | 2023-08-19 15:20 | ED_ITS ---
HPI - Extremity Injury (Lower) <Joselyn Garrett PA-C - Last Filed: 08/19/23 15:27> General Chief Complaint: Extremity Injury, Lower Stated Complaint: Can't walk Time Seen by Provider: 08/19/23 14:33 Source: patient Mode of arrival: Wheelchair History of Present Illness HPI Narrative: Patient is a 78-year-old female who presents with 1 day of left knee pain. She reports a long history of by sciatica secondary to her scoliosis. She had a right hip replacement earlier this year and is still involved in physical therapy and aqua therapy. Yesterday she bent down and felt a painful pop in her left knee. It was difficult to walk afterwards. The pain is somewhat better today but continues to be painful. She took ibuprofen this morning with some relief although she prefers not to take ibuprofen. She presents for evaluation of her knee. Related Data Home Medications Medication Instructions Recorded Confirmed estradiol 0.5 mg tablet 0.5 mg PO DAILY 01/06/23 01/19/23 levothyroxine 100 mcg tablet 100 mcg PO DAILY 01/06/23 01/19/23 lisinopril 20 mg tablet 40 mg PO QAM 01/06/23 01/19/23 meloxicam 15 mg tablet 15 mg PO BEDTIME 01/06/23 01/19/23 omeprazole 20 mg capsule,delayed 20 mg PO DAILY 01/06/23 01/19/23 release spironolactone 25 mg tablet 25 mg PO BEDTIME 01/06/23 01/19/23 Previous Rx's Medication Instructions Recorded ondansetron 4 mg disintegrating 4 mg PO Q4HR PRN Nausea #20 tabs 01/20/23 tablet Allergies Allergy/AdvReac Type Severity Reaction Status Date / Time erythromycin base AdvReac Severe Gastrointestinal Verified 01/06/23 09:11 Upset narcotics AdvReac Nausea & Uncoded 01/06/23 09:11 Vomiting Review of Systems <Joselyn Garrett PA-C - Last Filed: 08/19/23 15:27> Review of Systems ROS Unobtainable: All systems reviewed & are unremarkable except as noted in HPI and below Patient History <Joselyn Garrett PA-C - Last Filed: 08/19/23 15:27> Medical History COVID-19 (06/2022) Sciatica Grieving Hypothyroidism Hepatitis C (1998) GERD (gastroesophageal reflux disease) HLD (hyperlipidemia) HTN (hypertension) Surgical History Hx of tonsillectomy Hx of dilation and curettage (1965) History of hysterectomy (1984) Hx of appendectomy (1958) Hx of bilateral cataract extraction Social History household members: none Smoking Status: Never smoker alcohol intake: current Smoking Status: Never smoker alcohol intake frequency: holidays/special occasions only Substance Use Type: does not use Exam <Joselyn Garrett PA-C - Last Filed: 08/19/23 15:27> Narrative Exam Narrative: GENERAL: 78 year old patient appears stated age. Well-developed patient, in no distress. NEURO: AOx3. HEAD: Atraumatic. Normocephalic. EYES: Pupils equal round and reactive. Extraocular motions intact. No scleral icterus. No injection or drainage. ENT: Nose without bleeding or purulent drainage. Airway patent. NECK: Trachea midline. Non tender RESPIRATORY: No distress or increased work of breathing EXTREMITIES: No edema. Left knee is not tender to palpation but tender with ambulation or movement. There is no redness over the area. Distal neurovascular exam is intact SKIN: No rash or erythema of visible areas Initial Vital Signs Initial Vital Signs: Vital Signs Temperature 98.6 F 08/19/23 14:02 Pulse Rate 75 08/19/23 14:02 Respiratory Rate 16 08/19/23 14:02 Blood Pressure 177/77 H 08/19/23 14:02 Pulse Oximetry 100 08/19/23 14:02 Oxygen Delivery Method Room Air 08/19/23 14:02 <Connor Cruz MD - Last Filed: 08/24/23 08:17> Initial Vital Signs Initial Vital Signs: Vital Signs Temperature 98.6 F 08/19/23 14:02 Pulse Rate 75 08/19/23 14:02 Respiratory Rate 16 08/19/23 14:02 Blood Pressure 177/77 H 08/19/23 14:02 Pulse Oximetry 100 08/19/23 14:02 Oxygen Delivery Method Room Air 08/19/23 14:02 Course <Joselyn Garrett PA-C - Last Filed: 08/19/23 15:27> Orders Ordered: ED Orders 08/19/23 14:08 XR knee LT 3V Stat Vital Signs Vital signs: Vital Signs - 8 hr 08/19/23 14:02 Temperature 98.6 F Pulse Rate 75 Respiratory Rate 16 Blood Pressure 177/77 H Pulse Oximetry 100 Oxygen Delivery Method Room Air <Connor Cruz MD - Last Filed: 08/24/23 08:17> Orders Ordered: ED Orders 08/19/23 14:08 XR knee LT 3V Stat Vital Signs Vital signs: Vital Signs - 8 hr 08/19/23 14:02 Temperature 98.6 F Pulse Rate 75 Respiratory Rate 16 Blood Pressure 177/77 H Pulse Oximetry 100 Oxygen Delivery Method Room Air MDM - Extremity Injury (Lower) <Joselyn Garrett PA-C - Last Filed: 08/19/23 15:27> Imaging Data Extremity x-ray #1: Radiologist's Impression: PROCEDURE: XR KNEE LT 3V INDICATIONS: felt a pop yesterday/trouble walking TECHNIQUE: 3 views of the knee were acquired. COMPARISON: None. FINDINGS: Bones: No fractures or dislocations. No suspicious bony lesions. Soft tissues: No joint effusion. No suspicious soft tissue calcifications. IMPRESSION: No acute abnormality of the left knee. Dictated by: Carroll Martel M.D. on 08/19/2023 at 14:39 Approved by: Carroll Martel M.D. on 08/19/2023 at 14:40 [facility] Narrative Medical decision making narrative: Multiple etiologies for patient's symptoms considered including, but not limited to: Left knee soft tissue injury, left knee dislocation, fracture X-rays of the knee are unremarkable. Long discussion with the patient and her granddaughter regarding recuperation from knee injuries like this. Advised [facility] physical therapy. She may benefit from a knee sleeve or brace, especially when she is entering and exiting the pool, which she does 3 times a week to help with her back pain in her hip. I will send a referral today for physical therapy. She also would like to try acupuncture for her sciatic pain, I have included that in the notes but she may need to see primary care in order to have this ordered. I do think it would be beneficial. Patient's symptoms improved over duration of stay with above-stated therapies. Findings and discharge diagnosis discussed with patient/family followed by verbalization of understanding Return precautions discussed with patient/family whom verbalize understanding of diagnosis and plan Discharge Plan Departure Patient Disposition: Home Clinical Impression: Acute knee pain Qualifiers: Laterality: left Qualified Code(s): M25.562 - Pain in left knee Sciatica Qualifiers: Laterality: bilateral Qualified Code(s): M54.31 - Sciatica, right side Instructions: DI for Knee Pain Activity Restrictions/Additional Instructions: *You have been diagnosed with left knee pain. Your xray does not show any bony abnormality. I would suggest rest, ice, a brace or knee sleeve may help provide some stabilizing support for your knee. I will put in a referral for physical therapy for your knee and attempt a referral for acupuncture although I am not sure I can do that, you can follow up with your insurance. *What to do: *Please continue to take your regular medications as directed. [ ] New medication prescriptions sent to your pharmacy: [ ] [ ] New medication written as a paper prescription [x] No new medications given *Please follow up with your primary care provider in 2-3 days, call for an appointment. Let them know you were seen in the Emergency Department and that we ask that you be seen in follow up. We will electronically transmit a record of today's note if your PCP is in our system *If you do not have a primary care provider please contact the [facility] Resource line at [phone]. They will ask some questions about your medical history and help get you set up with a doctor in the community. *Return to Emergency Department if you should have any new, worsening or concerning symptoms, such as [fever greater than 101 F, shaking chills, worsening pain, persistent vomiting or other concerning symptoms]. Prescriptions: No Action meloxicam 15 mg Tablet 15 mg PO BEDTIME lisinopril 20 mg Tablet 40 mg PO QAM spironolactone 25 mg Tablet 25 mg PO BEDTIME levothyroxine 100 mcg Tablet 100 mcg PO DAILY Patient Comments: Takes 2 tabs one day a week on Wednesday omeprazole 20 mg Capsule,Delayed Release(Dr/Ec) 20 mg PO DAILY estradiol 0.5 mg Tablet 0.5 mg PO DAILY Rx Instructions: off 5 days; repeat cycle ondansetron 4 mg Tablet,Disintegrating 4 mg PO Q4HR PRN (Reason: Nausea) Qty: 20 0RF Referrals: [facility] [Outside] (left knee pain) Seven Morse MD [Physician] - (for accupuncture) Lianne Sanchez MD [Primary Care Provider] - Stand Alone Forms: Patient Portal/API ED Sign-out <Connor Cruz MD - Last Filed: 08/24/23 08:17> Cosign ED Attending Cosignature Attestation: I was immediately available in the department for consultation. ?This documentation has been reviewed and I agree with assessment and plan. Supervised by Connor Cruz MD
== END 2023-08-19 15:31 | disposition home or self-care (01) ==
PROVIDERS: Emergency Provider Physician Assistant; PCP Internal Medicine
DX: M25.562 Pain in left knee (principal); M54.31 Sciatica, right side
CPT/HCPCS: 73562; 99281; 99283

== ENCOUNTER 2023-11-23 12:44 | Emergency (ER) | payer MEDICARE, SELFPAY ==
[2023-01-19 18:58] VITALS: BMI 28.5
[2023-11-23] VITALS (19 sets, daily range): BP systolic 187–231; BP diastolic 82–100; PULSE 65–71; RESP 20; TEMP 37; O2SAT 94–100; BMI 29.0
--- NOTE | 2023-11-23 13:29 | DI.RAD.S_ITS ---
PROCEDURE: XR CHEST 1V INDICATIONS: chest pain TECHNIQUE: One view of the chest was acquired. COMPARISON: None. FINDINGS: Surgical changes and devices: None. Lungs and pleura: Lungs are clear. No pleural effusions or pneumothorax. Mediastinum: Mediastinal contours appear normal. Heart size is normal. Bones and chest wall: No suspicious bony lesions. Overlying soft tissues appear unremarkable. IMPRESSION: No acute cardiopulmonary abnormality is seen. Dictated by: Enrico Vazquez M.D. on 11/23/2023 at 14:12 Approved by: Enrico Vazquez M.D. on 11/23/2023 at 14:13
--- NOTE | 2023-11-23 13:29 | ED.FEMALEGU ---
HPI - Female Genitourinary General Chief complaint: Urogenital-Female Stated complaint: 10pain,poss kidney stone? light headed,nausea Time Seen by Provider: 11/23/23 13:29 Source: patient Mode of arrival: Ambulatory History of Present Illness HPI Narrative: Patient is a 78-year-old female history of hypertension presenting with 3 days of right-sided flank pain. She says it was kind of dull and achy she does not remember any sort of injury. However today she intense pain so bad she was nauseous and diaphoretic. She did not pass out. She can not tell if it is radiating to her stomach or not. It has subsided since she got Toradol. She has never had kidney stones before but think that this. He is to be extremely hypertensive here in the ED. She denies any chest pain or shortness of breath. She reports that she did not take her lisinopril this morning because she was afraid she might vomit. Patient is having some right-sided flank pain after further questioning she actually states that it is positional she can find position of comfort. As long as she does not move she is comfortable. She has previously had sciatica it does not feel like sciatica it has not radiating down her leg. But it does come and go. It is in her right lower lumbar area. Denies any injury. She reports that she was able to get into the pool and do her deep water running yesterday without any issue. She is active in physical therapy which he says helps. She goes to physical therapy for her knees. She also reports having chronic back issues but this is different than prior. Related Data Home Medications Medication Instructions Recorded Confirmed estradiol 0.5 mg tablet 0.5 mg PO DAILY 01/06/23 01/19/23 levothyroxine 100 mcg tablet 100 mcg PO DAILY 01/06/23 01/19/23 lisinopril 20 mg tablet 40 mg PO QAM 01/06/23 01/19/23 meloxicam 15 mg tablet 15 mg PO BEDTIME 01/06/23 01/19/23 omeprazole 20 mg capsule,delayed 20 mg PO DAILY 01/06/23 01/19/23 release spironolactone 25 mg tablet 25 mg PO BEDTIME 01/06/23 01/19/23 Previous Rx's Medication Instructions Recorded ondansetron 4 mg disintegrating 4 mg PO Q4HR PRN Nausea #20 tabs 01/20/23 tablet ondansetron 4 mg disintegrating 4 mg PO Q8H PRN nausea and 11/23/23 tablet vomiting #20 tabs oxycodone-acetaminophen 5 mg-325 1 tab PO Q6H PRN pain #10 tabs 11/23/23 mg tablet (Percocet) Allergies Allergy/AdvReac Type Severity Reaction Status Date / Time erythromycin base AdvReac Severe Gastrointestinal Verified 11/23/23 13:01 Upset codeine AdvReac Verified 11/23/23 13:01 narcotics AdvReac Nausea & Uncoded 11/23/23 13:01 Vomiting Patient History Medical History COVID-19 (06/2022) Sciatica Grieving Hypothyroidism Hepatitis C (1998) GERD (gastroesophageal reflux disease) HLD (hyperlipidemia) HTN (hypertension) Surgical History Hx of tonsillectomy Hx of dilation and curettage (1965) History of hysterectomy (1984) Hx of appendectomy (1958) Hx of bilateral cataract extraction alcohol intake frequency: holidays/special occasions only Substance Use Type: does not use Exam Initial Vital Signs Initial Vital Signs: Vital Signs Temperature 98.6 F 11/23/23 12:50 Pulse Rate 67 11/23/23 12:50 Respiratory Rate 20 11/23/23 12:50 Blood Pressure 228/100 H 11/23/23 12:50 Pulse Oximetry 100 11/23/23 12:50 Oxygen Delivery Method Room Air 11/23/23 12:50 GENERAL: Alert very pleasant 70-year-old and in no acute distress. HEENT: Head atraumatic,EOMI, pupils reactive, face symmetric, moist mucous membranes CARDIOVASCULAR: Regular rate and rhythm without murmurs, rubs or gallops. RESPIRATORY: Breath sounds equal bilaterally, no wheezes rales or rhonchi. ABDOMEN: Soft tender left side no guarding no rebound : Mild right CVA tenderness BACK: Right lower lumbar pain no vertebral tenderness no step-offs no real buttock pain. Pain is reproducible with palpation EXTREMITIES: Normal range of motion, no clubbing or edema. Neurovascularly intact NEUROLOGICAL: Alert and oriented x4. SKIN: Warm, dry, no laceration, no petechiae, no rashes or lesions. Course Orders Ordered: ED Orders 11/23/23 13:15 Complete Blood Count AUTO DIFF Stat Comprehensive Metabolic Panel Stat Lipase Stat Troponin & CK Cardiac Panel Stat 11/23/23 13:29 XR chest 1V Stat EKG-12 Lead Stat 11/23/23 14:25 CT kidney ureter bladder (KUB) Stat Discontinued Medications Ketorolac Tromethamine (Ketorolac 30 Mg/Ml Vial) 15 mg IV NOW ONE Stop: 11/23/23 13:30 Last Admin: 11/23/23 13:44 Dose: 15 mg Documented By: BLANCA Lisinopril (Lisinopril 20 Mg Tablet) 40 mg PO NOW ONE Stop: 11/23/23 14:26 Last Admin: 11/23/23 14:44 Dose: 40 mg Documented By: BLANCA Morphine Sulfate (Morphine 2 Mg/Ml Inj) 2 mg IV NOW ONE Stop: 11/23/23 15:12 Last Admin: 11/23/23 15:15 Dose: 2 mg Documented By: BLANCA Vital Signs Vital signs: Vital Signs - 8 hr 11/23/23 12:50 11/23/23 12:51 11/23/23 12:52 Temperature 98.6 F Pulse Rate 67 66 Respiratory Rate 20 Blood Pressure 228/100 H Pulse Oximetry 100 94 98 Oxygen Delivery Method Room Air 11/23/23 12:52 11/23/23 13:00 11/23/23 13:01 Temperature Pulse Rate 66 67 Respiratory Rate Blood Pressure 228/100 H Pulse Oximetry 99 99 Oxygen Delivery Method 11/23/23 13:01 11/23/23 13:17 11/23/23 13:17 Temperature Pulse Rate 66 Respiratory Rate Blood Pressure 187/82 H 195/86 H Pulse Oximetry 100 Oxygen Delivery Method 11/23/23 13:30 11/23/23 14:00 11/23/23 14:36 Temperature Pulse Rate 67 65 65 Respiratory Rate Blood Pressure Pulse Oximetry 99 99 99 Oxygen Delivery Method 11/23/23 14:44 11/23/23 14:47 11/23/23 14:47 Temperature Pulse Rate 67 69 Respiratory Rate Blood Pressure 218/93 H 218/93 H Pulse Oximetry 99 Oxygen Delivery Method 11/23/23 15:00 11/23/23 15:05 11/23/23 15:05 Temperature Pulse Rate 67 69 Respiratory Rate Blood Pressure 231/93 H Pulse Oximetry 98 99 Oxygen Delivery Method 11/23/23 15:30 11/23/23 15:45 11/23/23 15:45 Temperature Pulse Rate 68 68 Respiratory Rate Blood Pressure 205/86 H Pulse Oximetry 99 99 Oxygen Delivery Method 11/23/23 15:47 11/23/23 15:47 11/23/23 16:00 Temperature Pulse Rate 70 68 Respiratory Rate Blood Pressure 201/88 H Pulse Oximetry 99 98 Oxygen Delivery Method 11/23/23 16:00 11/23/23 16:07 11/23/23 16:07 Temperature Pulse Rate 71 Respiratory Rate Blood Pressure 206/90 H 189/85 H Pulse Oximetry 99 Oxygen Delivery Method 11/23/23 16:30 11/23/23 16:30 Temperature Pulse Rate 66 Respiratory Rate Blood Pressure 197/84 H Pulse Oximetry 98 Oxygen Delivery Method MDM - Female Genitourinary Lab Data 11/23/23 13:15 11/23/23 13:15 Labs: Lab Results 11/23/23 Range/Units 13:15 WBC 7.7 (4.5-11.0) X10^3/uL RBC 4.45 (4.0-5.2) X10^6/uL Hgb 13.8 (12.0-16.0) g/dL Hct 40.7 (36-46) % MCV 91.5 (80-100) fL MCH 31.1 (26-34) PG MCHC 34.0 (30-36) % RDW 13.4 (11.6-14.8) % Plt Count TNP Neut % (Auto) 72.6 (50-75) % Lymph % (Auto) 18.8 L (25-40) % [place] % (Auto) 5.1 (3-14) % Eos % (Auto) 2.6 (2-4) % Baso % (Auto) 0.9 (0-2) % Neut # (Auto) 5600 (6626-9222) /uL Lymph # (Auto) 1500 (6504-0667) /uL [place] # (Auto) 400 (0-900) /uL Eos # (Auto) 200 (0-450) /uL Baso # (Auto) 100 (0-100) /uL Sodium 137 (137-145) mmol/L Potassium 4.9 (3.4-5.1) mmol/L Chloride 105 (98-107) mmol/L Carbon Dioxide 22 (22-32) mmol/L BUN 30 H (7-17) mg/dL Creatinine 1.03 (0.52-1.04) mg/dL Estimated GFR 56 L (>60) mL/min BUN/Creatinine Ratio 29.1 H (6-22) Glucose 112 H (80-110) mg/dL Calcium 10.5 H (8.4-10.2) mg/dL Total Bilirubin 0.9 (0.2-1.3) mg/dL AST 26 (14-36) IU/L ALT 18 (<35) IU/L Alkaline Phosphatase 87 (38-126) U/L Total Creatine Kinase 46 (30-135) U/L Troponin I < 0.012 (0.01-0.034) ng/mL Total Protein 7.9 (6.3-8.2) g/dL Albumin 4.4 (3.5-5.0) g/dL Globulin 3.5 (1.7-4.1) g/dL Albumin/Globulin Ratio 1.3 (1.0-2.8) Lipase 68 (23-300) U/L Urine Dip Bedside Urine Glucose Negative Bedside Urine Bilirubin - Negative Bedside Urine Ketone - Negative Urine Specific [place] 1.030 Bedside Urine Occult Blood - Negative Bedside Urine pH 6.0 Bedside Urine Protein - Negative Bedside Urine Urobilinogen - Negative Bedside Urine Nitrite - Negative Bedside Urine Leukocytes - Negative Esterase Imaging Data CT scan - abdomen/pelvis: Radiologist's Impression: PROCEDURE: CT KIDNEY URETER BLADDER (KUB) INDICATIONS: right flank pain TECHNIQUE: Axial sections were acquired from the lung bases to the pubic symphysis. Coronal and sagittal reformats were performed. For radiation dose reduction, the following was used: automated exposure control, adjustment of mA and/or kV according to patient size. COMPARISON: None. FINDINGS: Image quality: Degraded by hip arthroplasty artifact. Lower Chest: Calcification of the coronary vasculature. URINARY: Right Kidney: No stones or hydronephrosis. Right Ureter: No hydroureter. Left Kidney: No stones or hydronephrosis. Left Ureter: No hydroureter. Bladder: Normal wall thickness. No stones. ABDOMEN: Liver: No contour-deforming solid mass. Gallbladder: Multiple calculi within the gallbladder lumen are present. Biliary ducts: No biliary dilation. Pancreas: No ductal dilation. Spleen: Size is within normal limits. Adrenal Glands: No adrenal nodules. Stomach and Bowel: Small hiatal hernia. Normal colonic caliber, without significant wall thickening. Peritoneum: No abnormal intraperitoneal fluid. No free air. Ventral Wall: No hernia. Abdominal Nodes: No enlarged retroperitoneal or mesenteric lymph nodes. Vessels: Aorta and inferior vena cava are normal in size. PELVIS: Pelvic Organs: Unremarkable. Pelvic Nodes: Unremarkable. Miscellaneous: No inguinal hernias are seen. Bones: Right hip arthroplasty. IMPRESSION: 1. No evidence of urinary tract calcification, nor obstruction. 2. Cholelithiasis. No evidence of cholecystitis. Dictated by: Enrico Vazquez M.D. on 11/23/2023 at 14:48 Approved by: Enrico Vazquez M.D. on 11/23/2023 at 14:52 ECG Data Interpretation: Normal sinus rhythm rate 66 CT interval 190 QRS [address] changes no T-wave inversions MDM Narrative Medical decision making narrative: Patient 78-year-old female presenting today with right-sided flank pain and back pain. No obvious injury. It is radiating around her friend does to be worse with movement and palpation. Initially given Toradol which did help quite a bit. Blood work has been reviewed without any significant abnormality sign of end-organ damage or EFREN CT noncontrast shows no nephrolithiasis but does show cholelithiasis without cholecystitis. Patient is noted to be quite hypertensive in the emergency department. She has not taken her blood pressure medications today due to her nausea. She is given her lisinopril here in the ED. Aortic dissection was considered however due to reproducible pain right lower lumbar area and worse with position I suspect more musculoskeletal rather than dissection. Patient ultimately was given morphine which helped with pain as well She was able to get into a wheelchair get into a car. She is feeling much better she was. Discharge Plan Departure Patient Disposition: Home Clinical Impression: Back pain Instructions: Low Back Pain Activity Restrictions/Additional Instructions: *You have been diagnosed with back pain *What to do: At this time seems that you are having muscle spasm. Recommend heating pad increasing light activity as tolerated. No heavy lifting. *Medications: Ibuprofen 600 mg every 6 hours if needed for [id number] pain Zofran 4 mg every 8 hours if needed for nausea or vomiting Percocet 1 tablet every 6 hours if needed for severe pain *Follow up with your primary care provider in 2-3 days or call [phone] *Return to ER if you should have increasing pain weakness numbness tingling loss of urine [or] any new, worsening or concerning symptoms CONTROLLED SUBSTANCE DISCHARGE (Narcotoic/benzodiazepine/Flexeril/Phenergan) 1. You have been prescribed narcotic medications, it does have acetaminophen/Tylenol/paracetamol in it, DO NOT TAKE MORE THAN 4,00mg in 24 hours of Tylenol. TRAMADOL DOES NOT CONTAIN TYLENOL 2. Please understand that we cannot provide further refills of narcotics, benzodiazepines or controlled substances through the ED and her pain management will need to be through your provider. 3. While on these medications you cannot drive or operate heavy machinery. 4. You cannot sign legal documents or perform any duties such as this. 5. As long as you're taking opiate pain medications he should also be taking a stool softener such as Colace, Dulcolax, MiraLAX or prune juice, to help avoid constipation. Prescriptions: New oxycodone-acetaminophen [Percocet] 5-325 mg tablet 1 tab PO Q6H PRN (Reason: pain) Qty: 10 0RF ondansetron 4 mg tablet,disintegrating 4 mg PO Q8H PRN (Reason: nausea and vomiting) Qty: 20 0RF No Action meloxicam 15 mg Tablet 15 mg PO BEDTIME lisinopril 20 mg Tablet 40 mg PO QAM spironolactone 25 mg Tablet 25 mg PO BEDTIME levothyroxine 100 mcg Tablet 100 mcg PO DAILY Patient Comments: Takes 2 tabs one day a week on Wednesday omeprazole 20 mg Capsule,Delayed Release(Dr/Ec) 20 mg PO DAILY estradiol 0.5 mg Tablet 0.5 mg PO DAILY Rx Instructions: off 5 days; repeat cycle ondansetron 4 mg Tablet,Disintegrating 4 mg PO Q4HR PRN (Reason: Nausea) Qty: 20 0RF Referrals: Lianne Sanchez MD [Primary Care Provider] - Stand Alone Forms: Patient Portal/API
[2023-11-23 13:44] LABS: Alanine Aminotransferase 18 IU/L (<35); Albumin 4.4 g/dL (3.5-5.0); Albumin Globulin Ratio 1.3 (1.0-2.8); Alkaline Phosphatase 87 U/L (38-126); Aspartate Aminotransferase 26 IU/L (14-36); BUN Creatinine Ratio 29.1 (6-22); Bilirubin Total 0.9 mg/dL (0.2-1.3); Blood Urea Nitrogen 30 mg/dL (7-17); Calcium 10.5 mg/dL (8.4-10.2); Carbon Dioxide 22 mmol/L (22-32); Chloride 105 mmol/L (98-107); Creatine Kinase 46 U/L (30-135); Estimated Glomerular Filt Rate 56 mL/min (>60); Globulin 3.5 g/dL (1.7-4.1); Glucose 112 mg/dL (80-110); Lipase 68 U/L (23-300); Potassium 4.9 mmol/L (3.4-5.1); Sodium 137 mmol/L (137-145); Total Protein 7.9 g/dL (6.3-8.2)
[2023-11-23] MEDS: KETOROLAC 30 MG/ML VIAL 15 MG IV (13:44)
[2023-11-23 13:46] LABS: Add Manual Diff / Slide Review NO; Basophils Absolute Auto 100 /uL (0-100); Basophils Percent Auto 0.9 % (0-2); Eosinophils Absolute Auto 200 /uL (0-450); Eosinophils Percent Auto 2.6 % (2-4); Hematocrit 40.7 % (36-46); Hemoglobin 13.8 g/dL (12.0-16.0); Lymphocytes Absolute Auto 1500 /uL (1100-4500); Lymphocytes Percent Auto 18.8 % (25-40); Mean Corpuscular Hemoglobin 31.1 PG (26-34); Mean Corpuscular Volume 91.5 fL (80-100); Monocytes Absolute Auto 400 /uL (0-900); Monocytes Percent Auto 5.1 % (3-14); Neutrophils Absolute Auto 5600 /uL (1500-7000); Neutrophils Percent Auto 72.6 % (50-75); Red Blood Cell Count 4.45 X10^6/uL (4.0-5.2); Red Cell Distribution Width 13.4 % (11.6-14.8); White Blood Cell Count 7.7 X10^3/uL (4.5-11.0)
[2023-11-23 13:57] LABS: HEMOLYSIS 28 (0-50); Troponin I < 0.012 ng/mL (0.01-0.034)
--- NOTE | 2023-11-23 14:25 | DI.CT.S_ITS ---
PROCEDURE: CT KIDNEY URETER BLADDER (KUB) INDICATIONS: right flank pain TECHNIQUE: Axial sections were acquired from the lung bases to the pubic symphysis. Coronal and sagittal reformats were performed. For radiation dose reduction, the following was used: automated exposure control, adjustment of mA and/or kV according to patient size. COMPARISON: None. FINDINGS: Image quality: Degraded by hip arthroplasty artifact. Lower Chest: Calcification of the coronary vasculature. URINARY: Right Kidney: No stones or hydronephrosis. Right Ureter: No hydroureter. Left Kidney: No stones or hydronephrosis. Left Ureter: No hydroureter. Bladder: Normal wall thickness. No stones. ABDOMEN: Liver: No contour-deforming solid mass. Gallbladder: Multiple calculi within the gallbladder lumen are present. Biliary ducts: No biliary dilation. Pancreas: No ductal dilation. Spleen: Size is within normal limits. Adrenal Glands: No adrenal nodules. Stomach and Bowel: Small hiatal hernia. Normal colonic caliber, without significant wall thickening. Peritoneum: No abnormal intraperitoneal fluid. No free air. Ventral Wall: No hernia. Abdominal Nodes: No enlarged retroperitoneal or mesenteric lymph nodes. Vessels: Aorta and inferior vena cava are normal in size. PELVIS: Pelvic Organs: Unremarkable. Pelvic Nodes: Unremarkable. Miscellaneous: No inguinal hernias are seen. Bones: Right hip arthroplasty. IMPRESSION: 1. No evidence of urinary tract calcification, nor obstruction. 2. Cholelithiasis. No evidence of cholecystitis. Dictated by: Enrico Vazquez M.D. on 11/23/2023 at 14:48 Approved by: Enrico Vazquez M.D. on 11/23/2023 at 14:52
[2023-11-23] MEDS: lisinopriL 20 MG TABLET 40 MG PO (14:44)
[2023-11-23] MEDS: MORPHINE 2 MG/ML INJ IV (15:15)
--- NOTE | 2023-11-23 15:25 | PC.NURSE ---
Pt up to [facility] with 1 person assist. Pt states that the ketorolac helped earlier but since then her pain has increased to an 8/10. CERTIFICATION OFFICER intact and pt a&ox4. Pt remains hypertensive with BP 231/93 after giving 40mg PO lisinopril. Dr Garcia notified and placed order for 2mg of IV morphine.
--- NOTE | 2023-11-23 16:10 | PC.NURSE ---
Pt reports significant relief of pain with repositioning and 2mg IV morphine. rates pain as 4/10 and bp is now 189/85
== END 2023-11-23 17:00 | disposition home or self-care (01) ==
PROVIDERS: Emergency Provider Emergency Medicine; PCP Internal Medicine
DX: M54.9 Dorsalgia, unspecified (principal); Z79.899 Other long term (current) drug therapy
CPT/HCPCS: 36415; 71045; 74176; 80053; 81003; 82550; 83690; 84484; 85025; 93005; 96374; 96375; 99284; J1885; J2270

== ENCOUNTER → 2024-01-28 12:15 | Outpatient (CLI) | payer MEDICARE, SELFPAY ==
[2023-01-19 18:58] VITALS: BMI 28.5
[2024-01-28 13:18] LABS: Add Manual Diff / Slide Review NO; Basophils Absolute Auto 100 /uL (0-100); Eosinophils Absolute Auto 400 /uL (0-450); Eosinophils Percent Auto 4.9 % (2-4); Hematocrit 40.2 % (36-46); Hemoglobin 13.5 g/dL (12.0-16.0); Lymphocytes Absolute Auto 2500 /uL (1100-4500); Lymphocytes Percent Auto 34.1 % (25-40); Mean Corpuscular HGB Conc 33.5 % (30-36); Mean Corpuscular Hemoglobin 30.6 PG (26-34); Mean Corpuscular Volume 91.3 fL (80-100); Monocytes Absolute Auto 700 /uL (0-900); Monocytes Percent Auto 10.1 % (3-14); Neutrophils Absolute Auto 3700 /uL (1500-7000); Neutrophils Percent Auto 49.9 % (50-75); Platelet Count 378 X10^3/uL (150-400); White Blood Cell Count 7.3 X10^3/uL (4.5-11.0)
[2024-01-28 13:21] LABS: Appearance Urine UA CLEAR; Bilirubin Urine UA NEGATIVE (NEGATIVE); Color Urine UA YELLOW; Glucose Urine UA NEGATIVE (Negative); Ketones Urine UA NEGATIVE (NEGATIVE); Leukocyte Esterase Urine UA NEGATIVE (NEGATIVE); Nitrite Urine UA NEGATIVE (Negative); Occult Blood Urine UA NEGATIVE (Negative); Protein Urine UA NEGATIVE (Negative); Urobilinogen Urine UA 0.2 E.U./dL (0.2)
[2024-01-28 13:28] LABS: Bacteria Urine Occasional (0-1); Culture Indicated Urine Cult Not Indicated; RBC Urine 0-1/HPF (0-5/HPF); Squamous Epithelial Cell Urine 5-10 /HPF (0-5/HPF); Urine Volume 10mL (spun); WBC Urine 0-1/HPF (0-5/HPF)
[2024-01-28 13:52] LABS: Hemoglobin A1C% w Est Avg Glu 5.8 % (4.0-6.0)
[2024-01-28 13:55] LABS: Blood Urea Nitrogen 33 mg/dL (7-17); Calcium 10.5 mg/dL (8.4-10.2); Carbon Dioxide 25 mmol/L (22-32); Chloride 106 mmol/L (98-107); Estimated Glomerular Filt Rate 51 mL/min (>60); Glucose 68 mg/dL (80-110); HEMOLYSIS < 15 (0-50); Sodium 138 mmol/L (137-145)
== END ==
LOC: LAB 12:16
PROVIDERS: PCP Internal Medicine; Referring Provider Orthopaedic Surgery; Visit Provider Orthopaedic Surgery
DX: Z01.818 Encounter for other preprocedural examination (principal); R73.9 Hyperglycemia, unspecified; Z01.812 Encounter for preprocedural laboratory examination; N39.0 Urinary tract infection, site not specified
CPT/HCPCS: 36415; 80048; 81001; 83036; 85025; 93005

== ENCOUNTER → 2024-04-06 09:20 | Outpatient (CLI) | payer MEDICARE, SELFPAY ==
[2023-01-19 18:58] VITALS: BMI 28.5
--- NOTE | 2024-04-06 | DI.MG.S_ITS ---
BILATERAL DIGITAL SCREENING MAMMOGRAM 3D/2D WITH CAD: 04/06/2024 CLINICAL: Routine screening. Comparison is made to exams dated: 03/10/2023 mammogram, 03/06/2022 mammogram, and 03/05/2021 mammogram - [facility]. Both breasts are heterogeneously dense, which may obscure small masses (category c / 51-75% glandular tissue). Current study was also evaluated with a Computer Aided Detection (CAD) system. No significant masses, calcifications, or other findings are seen in either breast. There has been no significant interval change. IMPRESSION: NEGATIVE There is no mammographic evidence of malignancy. A 1 year screening mammogram is recommended. Based on the Tyrer Cuzick model (a risk assessment model) the patient's lifetime risk is 2.2% and her 10 year risk is 0.0%. According to the ACR, ACS, and NCCN guidelines, an annual breast MRI exam along with mammogram is recommended if the patient's lifetime risk is 20% or greater. This exam was interpreted at Station ID: [id number]. NOTE: For mammograms, a report in lay terms will be sent to the patient. Approximately 15% of breast malignancies will not be visualized mammographically. In the management of a palpable breast mass, a negative mammogram must not discourage biopsy of a clinically suspicious lesion. Electronically Signed By: Denys valencia/fadia:04/06/2024 11:13:21 letter sent: Normal Exam ACR BI-RADS Category 1: Negative [id number]
== END ==
PROVIDERS: PCP Internal Medicine; Referring Provider Internal Medicine; Visit Provider Internal Medicine
DX: Z12.31 Encounter for screening mammogram for malignant neoplasm of breast (principal); R92.333 Mammographic heterogeneous density, bilateral breasts
CPT/HCPCS: 77063; 77067

== ENCOUNTER 2025-01-25 17:30 | Emergency (ER) | payer MEDICARE, SELFPAY ==
[2023-01-19 18:58] VITALS: BMI 28.5
[2025-01-25 17:38] VITALS: BP 158/74; PULSE 72; RESP 18; TEMP 36.5; O2SAT 99; BMI 29.8
--- NOTE | 2025-01-25 17:42 | DI.RAD.S_ITS ---
PROCEDURE: XR HIP W PEL IF DONE LT 2V INDICATIONS: felt a pop with stretching/pain TECHNIQUE: 3 views of the hip were acquired. COMPARISON: [facility], CR, XR HIP W PEL IF DONE RT 2V, 01/19/2023, 17:42. [facility], CR, XR HIP W PEL IF DONE RT 2V, 01/19/2023, 16:01. FINDINGS AND IMPRESSION: Moderate left hip arthrosis. Right hip arthroplasty is again seen, similar to prior. No acute displaced fracture or dislocation. Lumbosacral degenerative changes. Pelvic postsurgical changes. Dystrophic calcifications are seen adjacent to the proximal femoral shaft. If there is high concern for further derangement, consider MRI evaluation. Dictated by: Denys Hong M.D. on 01/25/2025 at 18:42 Approved by: Denys Hong M.D. on 01/25/2025 at 18:43
--- NOTE | 2025-01-25 19:20 | ED_ITS ---
HPI - Extremity Injury (Lower) <Mandie Starks PA-C - Last Filed: 01/25/25 21:42> General Chief Complaint: Extremity Injury, Lower Stated Complaint: hip pain Time Seen by Provider: 01/25/25 18:54 History of Present Illness HPI Narrative: Ms. Olea is a very pleasant 79-year-old female with a past medical history of right hip replacement by Dr. Barrios 2 years ago, hypertension, scoliosis who presents to the emergency department via EMS for left hip pain. 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 Describes the pain is primarily on the lateral left glute/hip region. She called EMS because she knew she was unable to walk to the car and bring herself here. At this time she reports continued pain in the left lateral hip that is quite mild when at rest but when she stands and attempts to bear weight on the leg it is very difficult to walk. She denies any numbness, tingling, weakness, back pain. No fall or direct trauma. She is here with multiple family members. Related Data Home Medications Medication Instructions Recorded Confirmed estradiol 0.5 mg tablet 0.5 mg PO DAILY 01/06/23 01/19/23 levothyroxine 100 mcg tablet 100 mcg PO DAILY 01/06/23 01/19/23 lisinopril 20 mg tablet 40 mg PO QAM 01/06/23 01/19/23 meloxicam 15 mg tablet 15 mg PO BEDTIME 01/06/23 01/19/23 omeprazole 20 mg capsule,delayed 20 mg PO DAILY 01/06/23 01/19/23 release spironolactone 25 mg tablet 25 mg PO BEDTIME 01/06/23 01/19/23 Previous Rx's Medication Instructions Recorded ondansetron 4 mg disintegrating 4 mg PO Q4HR PRN Nausea #20 tabs 01/20/23 tablet ondansetron 4 mg disintegrating 4 mg PO Q8H PRN nausea and 11/23/23 tablet vomiting #20 tabs oxycodone-acetaminophen 5 mg-325 1 tab PO Q6H PRN pain #10 tabs 11/23/23 mg tablet (Percocet) Allergies Allergy/AdvReac Type Severity Reaction Status Date / Time erythromycin base AdvReac Severe Gastrointestinal Verified 11/23/23 13:01 Upset codeine AdvReac Verified 11/23/23 13:01 narcotics AdvReac Nausea & Uncoded 11/23/23 13:01 Vomiting Review of Systems <Mandie Starks PA-C - Last Filed: 01/25/25 21:42> Review of Systems ROS Unobtainable: All systems reviewed & are unremarkable except as noted in HPI and below Patient History <Mandie Starks PA-C - Last Filed: 01/25/25 21:42> Medical History COVID-19 (06/2022) Sciatica Grieving Hypothyroidism Hepatitis C (1998) GERD (gastroesophageal reflux disease) HLD (hyperlipidemia) HTN (hypertension) Surgical History Hx of tonsillectomy Hx of dilation and curettage (1965) History of hysterectomy (1984) Hx of appendectomy (1958) Hx of bilateral cataract extraction Social History household members: none Smoking Status: Never smoker alcohol intake: current Smoking Status: Never smoker alcohol intake frequency: holidays/special occasions only Exam <Mandie Starks PA-C - Last Filed: 01/25/25 21:42> Narrative Exam Narrative: GENERAL: 79 year old patient appears stated age. Well-developed patient, in no acute distress. HEAD: Atraumatic. Normocephalic. ENT: Nose without bleeding, purulent drainage. Throat without erythema, tonsillar hypertrophy or exudate. Airway patent. NECK: Trachea midline. Cervical ROM intact. CARDIOVASCULAR: Regular rate and rhythm. RESPIRATORY: ?Nonlabored respirations. ?Speaking in clear, full sentences. ?Clear to auscultation. Breath sounds equal bilaterally. No wheezes, rales, or rhonchi. ? EXTREMITIES: Mild bilateral lower extremity edema. Brisk capillary refill in the toes and palpable DP pulses. She is tenderness to palpation of the left lateral proximal femur, lateral hip and also left SI joint region. She has significant pain in the left hip upon standing. BACK: Scoliosis curvature. No midline spinal tenderness. NEURO: AOx3. ?Clear speech. ?Moves all 4 extremities appropriately. Ambulates only a few steps with limp due to left hip pain. SKIN: No rash or erythema of visible areas Initial Vital Signs Initial Vital Signs: Vital Signs Temperature 97.7 F 01/25/25 17:38 Pulse Rate 72 01/25/25 17:38 Respiratory Rate 18 01/25/25 17:38 Blood Pressure 158/74 H 01/25/25 17:38 Pulse Oximetry 99 01/25/25 17:38 Oxygen Delivery Method Room Air 01/25/25 17:38 <Gloria Garcia DO - Last Filed: 01/25/25 22:27> Initial Vital Signs Initial Vital Signs: Vital Signs Temperature 97.7 F 01/25/25 17:38 Pulse Rate 72 01/25/25 17:38 Respiratory Rate 18 01/25/25 17:38 Blood Pressure 158/74 H 01/25/25 17:38 Pulse Oximetry 99 01/25/25 17:38 Oxygen Delivery Method Room Air 01/25/25 17:38 Course <Mandie Starks PA-C - Last Filed: 01/25/25 21:42> Orders Ordered: ED Orders 01/25/25 17:42 XR hip w pel if done LT 2V Stat 01/25/25 19:34 CT pelvis wo con Stat Discontinued Medications Acetaminophen (Acetaminophen 650 Mg Supp) 650 mg CA NOW ONE Stop: 01/25/25 19:35 Last Admin: 01/25/25 20:26 Dose: Not Given Documented By: NATALY Acetaminophen (Acetaminophen 325 Mg Tablet) 650 mg PO NOW ONE Stop: 01/25/25 19:56 Last Admin: 01/25/25 20:02 Dose: 650 mg Documented By: NATALY Ibuprofen (Ibuprofen 400 Mg Tablet) 400 mg PO NOW ONE Stop: 01/25/25 19:35 Last Admin: 01/25/25 20:02 Dose: 400 mg Documented By: NATALY Lidocaine (Lidocaine 5% Patch) 1 each TOP NOW ONE Stop: 01/25/25 19:35 Last Admin: 01/25/25 20:02 Dose: 1 each Documented By: NATALY Vital Signs Vital signs: Vital Signs - 8 hr 01/25/25 17:38 Temperature 97.7 F Pulse Rate 72 Respiratory Rate 18 Blood Pressure 158/74 H Pulse Oximetry 99 Oxygen Delivery Method Room Air <Gloria Garcia DO - Last Filed: 01/25/25 22:27> Orders Ordered: ED Orders 01/25/25 17:42 XR hip w pel if done LT 2V Stat 01/25/25 19:34 CT pelvis wo con Stat Discontinued Medications Acetaminophen (Acetaminophen 650 Mg Supp) 650 mg CA NOW ONE Stop: 01/25/25 19:35 Last Admin: 01/25/25 20:26 Dose: Not Given Documented By: NATALY Acetaminophen (Acetaminophen 325 Mg Tablet) 650 mg PO NOW ONE Stop: 01/25/25 19:56 Last Admin: 01/25/25 20:02 Dose: 650 mg Documented By: NATALY Ibuprofen (Ibuprofen 400 Mg Tablet) 400 mg PO NOW ONE Stop: 01/25/25 19:35 Last Admin: 01/25/25 20:02 Dose: 400 mg Documented By: NATALY Lidocaine (Lidocaine 5% Patch) 1 each TOP NOW ONE Stop: 01/25/25 19:35 Last Admin: 01/25/25 20:02 Dose: 1 each Documented By: NATALY Vital Signs Vital signs: Vital Signs - 8 hr 01/25/25 17:38 Temperature 97.7 F Pulse Rate 72 Respiratory Rate 18 Blood Pressure 158/74 H Pulse Oximetry 99 Oxygen Delivery Method Room Air MDM - Extremity Injury (Lower) <Mandie Starks PA-C - Last Filed: 01/25/25 21:42> Medical Records Attestation: I reviewed the patient's medical records. Imaging Data XR Left Hip: Radiologist's Impression: PROCEDURE: XR HIP W PEL IF DONE LT 2V INDICATIONS: felt a pop with stretching/pain TECHNIQUE: 3 views of the hip were acquired. COMPARISON: [facility], CR, XR HIP W PEL IF DONE RT 2V, 01/19/2023, 17:42. [facility], CR, XR HIP W PEL IF DONE RT 2V, 01/19/2023, 16:01. FINDINGS AND IMPRESSION: Moderate left hip arthrosis. Right hip arthroplasty is again seen, similar to prior. No acute displaced fracture or dislocation. Lumbosacral degenerative changes. Pelvic postsurgical changes. Dystrophic calcifications are seen adjacent to the proximal femoral shaft. If there is high concern for further derangement, consider MRI evaluation. MDM Narrative Medical decision making narrative: 79-year-old female with a past medical history of right hip replacement by Dr. Barrios 2 years ago, hypertension, scoliosis who presents to the emergency department via EMS for left hip pain. Differential diagnosis includes but is not limited to hip fracture, hip dislocation, hip arthritis, lumbar radiculopathy, sacroiliitis, etc. On exam patient is in no acute distress, nontoxic appearing, vital signs appropriate. She is tenderness to palpation of the left lateral hip/proximal femur and significant pain with weight-bearing, inability to ambulate independently due to pain. Declines opioids, we will treat pain with ibuprofen and acetaminophen, x-ray was obtained in triage revealing moderate left hip arthrosis. Right hip arthroplasties again seen, similar to prior. No acute displaced fracture or dislocation. Lumbosacral degenerative changes. Pelvic postsurgical changes. Dystrophic calcifications are seen adjacent to the proximal femoral shaft. Due to patient's significant pain, inability to ambulate independently, we will proceed with CT to rule out subtle fracture. We will treat with ibuprofen and acetaminophen and provide with walker. Lower extremities are neurovascularly intact. Patient feeling better after medications, she did trial the walker and is able to stand and ambulate cautiously with walker. CT pelvis/hip is pending at this time. Discussed case with the nighttime ED attending physician due to shift change. Patient is aware that her disposition will be determined by the CT findings. She is agreeable to transfer of care, resting comfortably at this time. <Gloria Garcia, DO - Last Filed: 01/25/25 22:27> [facility] Narrative Medical decision making narrative: 79-year-old female with a past medical history of right hip replacement by Dr. Barrios 2 years ago, hypertension, scoliosis who presents to the emergency department via EMS for left hip pain. Differential diagnosis includes but is not limited to hip fracture, hip dislocation, hip arthritis, lumbar radiculopathy, sacroiliitis, etc. On exam patient is in no acute distress, nontoxic appearing, vital signs appropriate. She is tenderness to palpation of the left lateral hip/proximal femur and significant pain with weight-bearing, inability to ambulate independently due to pain. Declines opioids, we will treat pain with ibuprofen and acetaminophen, x-ray was obtained in triage revealing moderate left hip arthrosis. Right hip arthroplasties again seen, similar to prior. No acute d isplaced fracture or dislocation. Lumbosacral degenerative changes. Pelvic postsurgical changes. Dystrophic calcifications are seen adjacent to the proximal femoral shaft. Due to patient's significant pain, inability to ambulate independently, we will proceed with CT to rule out subtle fracture. We will treat with ibuprofen and acetaminophen and provide with walker. Lower extremities are neurovascularly intact. Patient feeling better after medications, she did trial the walker and is able to stand and ambulate cautiously with walker. CT pelvis/hip is pending at this time. Discussed case with the nighttime ED attending physician due to shift change. Patient is aware that her disposition will be determined by the CT findings. She is agreeable to transfer of care, resting comfortably at this time. Patient signed out to me by Mandie NATION. I have seen evaluated patient myself. She was good flexion-extension and rotation. No significant back pain. No trauma. CT and x-ray have been reviewed and are negative for fracture. She was able to stand somewhat with a walker. She has a physical therapy appointment tomorrow. She was followed with Orthopedics as well. Discharge Plan Departure Patient Disposition: Home Clinical Impression: Acute pain of left hip, Arthritis of left hip Instructions: DI for Hip Pain Activity Restrictions/Additional Instructions: Dear Olea, Thank you for coming to the emergency department today. I am sorry about your left hip injury. Your CT scan today revealed . Please take Ibuprofen (Motrin/Advil) or Acetaminophen (Tylenol) for pain. These are available over the counter. You may take Ibuprofen 600 mg every 8 hours with food for pain. You may also take Acetaminophen 650 mg every 4-6 hours for pain. Do not exceed 3000 mg of Tylenol a day as this can cause liver damage. Do not drink alcohol with either of these medications. Please call to schedule an appointment with the orthopedic surgeon, Dr. Barrios, at [facility] for further evaluation and management. Please follow up with your primary care doctor within the next 2-3 days for ER follow-up. (If you do not have a PCP you can call [phone]. ?to schedule an appointment with an [facility] Primary Care Provider) IF YOU DEVELOP ANY NEW OR WORSENING SYMPTOMS, RETURN TO THE ER! Please read the attached instructions, they highlight more specific treatments and interventions for you at home. Thank you for letting me participate in your care, Mandie Starks PA-C Prescriptions: No Action oxycodone-acetaminophen [Percocet] 5-325 mg tablet 1 tab PO Q6H PRN (Reason: pain) Qty: 10 0RF ondansetron 4 mg tablet,disintegrating 4 mg PO Q8H PRN (Reason: nausea and vomiting) Qty: 20 0RF meloxicam 15 mg Tablet 15 mg PO BEDTIME lisinopril 20 mg Tablet 40 mg PO QAM spironolactone 25 mg Tablet 25 mg PO BEDTIME levothyroxine 100 mcg Tablet 100 mcg PO DAILY Patient Comments: Takes 2 tabs one day a week on Wednesday omeprazole 20 mg Capsule,Delayed Release(Dr/Ec) 20 mg PO DAILY estradiol 0.5 mg Tablet 0.5 mg PO DAILY Rx Instructions: off 5 days; repeat cycle ondansetron 4 mg Tablet,Disintegrating 4 mg PO Q4HR PRN (Reason: Nausea) Qty: 20 0RF Referrals: Lianne Sanchez MD [Primary Care Provider] - Leela Barrios MD [Physician] - Stand Alone Forms: Patient Portal/API/Survey ED Sign-out <Gloria Garcia DO - Last Filed: 01/25/25 22:27> Cosign ED Attending Paige Attestation: I was available for consultation.
--- NOTE | 2025-01-25 19:34 | DI.CT.S_ITS ---
PROCEDURE: CT PEL WO CON INDICATIONS: nontraumatic left hip pain; can't walk on it TECHNIQUE: Noncontrast 3 mm axial sections acquired through the bony pelvis, with coronal and sagittal reformatting. COMPARISON: [facility], CT, CT KIDNEY URETER BLADDER (KUB), 11/23/2023, 14:36. [facility], CR, XR HIP W PEL IF DONE LT 2V, 01/25/2025, 17:47. FINDINGS: Image quality: Diagnostic Bones: Stable postsurgical changes and alignment of right total hip arthroplasty without evidence for hardware complication. Stable CT appearance of moderate left hip degenerative changes. Stable appearance of joint space loss. No acute fractures identified in the left femur. Bony pelvis appears intact without fracture. Severe degenerative changes of the imaged lower lumbar spine. Levoscoliosis centered at L4. No evidence for suspicious periosteal reaction. Stable appearance of faint sclerosis involving the left femoral head likely reactive in etiology and related to weight-bearing changes. No suspicious osseous lesions. Soft tissues: Atherosclerosis. No aneurysmal dilatation of the abdominal aorta. Urinary bladder is unremarkable in appearance. No evidence suggest joint effusion. Colonic diverticulosis without acute diverticulitis. IMPRESSION: CT pelvis without acute abnormalities. Stable appearance of moderate degenerative changes of the left hip. No suspicious osseous lesions. If there is concern for reactive marrow changes or internal soft tissue derangement. Consider outpatient MRI for further evaluation. No joint effusion seen. Stable postsurgical changes of right total hip arthroplasty without hardware complication. Stable appearance of levoscoliosis of the lumbar spine with severe lumbar spondylosis. Colonic diverticulosis without acute diverticulitis. Dictated by: Keron Jang M.D. on 01/25/2025 at 21:54 Approved by: Keron Jang M.D. on 01/25/2025 at 22:01
[2025-01-25] MEDS: LIDOCAINE 5% PATCH 1 EACH TOP (20:02)
[2025-01-25] MEDS: ACETAMINOPHEN 325 MG TABLET 650 MG PO (20:02)
[2025-01-25] MEDS: IBUPROFEN 400 MG TABLET PO (20:02)
[2025-01-25 22:23] VITALS: BP 186/86; PULSE 60; RESP 15; O2SAT 97
== END 2025-01-25 22:35 | disposition home or self-care (01) ==
PROVIDERS: Emergency Provider Emergency Medicine; PCP Internal Medicine
DX: M25.552 Pain in left hip (principal); M16.12 Unilateral primary osteoarthritis, left hip; Z96.641 Presence of right artificial hip joint
CPT/HCPCS: 72192; 73502; 99283; 99284

== ENCOUNTER → 2025-02-17 15:39 | Outpatient (CLI) | payer MEDICARE, SELFPAY ==
[2023-01-19 18:58] VITALS: BMI 28.5
[2025-02-17 16:33] LABS: Influenza A - CEPHEID Flu A NEGATIVE (NEGATIVE); Influenza B - CEPHEID Flu B NEGATIVE (NEGATIVE); Respiratory Syncytial Virus Negative (Negative)
[2025-02-17 16:43] LABS: COVID-19 CEPHEID 4-PLEX PCR Negative (Negative)
== END ==
LOC: LAB 15:42
PROVIDERS: PCP Internal Medicine; Visit Provider Nurse Practitioner Family
DX: R05.9 Cough, unspecified (principal)
CPT/HCPCS: 0241U

== ENCOUNTER → 2025-02-17 15:56 | Outpatient (CLI) | payer MEDICARE, SELFPAY ==
[2023-01-19 18:58] VITALS: BMI 28.5
--- NOTE | 2025-02-17 15:58 | DI.RAD.S_ITS ---
PROCEDURE: XR CHEST 2V INDICATIONS: Cough TECHNIQUE: 2 views of the chest were acquired. COMPARISON: [facility], CR, XR CHEST 1V, 11/23/2023, 13:51. FINDINGS: Surgical changes and devices: None. Lungs and pleura: Lungs are clear. No pleural effusions or pneumothorax. Mediastinum: Mediastinal contours are normal. Heart size is normal. Bones and chest wall: No suspicious bony abnormalities. Soft tissues appear unremarkable. IMPRESSION: No acute cardiopulmonary abnormality is seen. Dictated by: Cain Hammond M.D. on 02/17/2025 at 22:04 Approved by: Cain Hammond M.D. on 02/17/2025 at 22:05
== END ==
LOC: RAD 15:57
PROVIDERS: PCP Internal Medicine; Referring Provider Nurse Practitioner Family; Visit Provider Nurse Practitioner Family
DX: R05.9 Cough, unspecified (principal)
CPT/HCPCS: 0241U; 71046

== ENCOUNTER → 2025-04-17 08:14 | Outpatient (CLI) | payer MEDICARE, SELFPAY ==
[2023-01-19 18:58] VITALS: BMI 28.5
--- NOTE | 2025-04-17 08:16 | DI.MG.S_ITS ---
MM screening mammo BI: 04/17/2025. BI-RADS: 2 CLINICAL: 80-year old female for bilateral screening mammogram. Tyrer-Cuzick lifetime risk of 2.0%. No personal or first-degree family history of breast cancer. PRIOR EXAMS 04/06/2024, 03/10/2023, 03/06/2022, 03/05/2021. MAMMOGRAPHY TECHNIQUE: 2D and 3D (tomosynthesis) digital mammographic views obtained, with additional images as needed for full coverage. Current study was also evaluated with a Computer Aided Detection (CAD) system. DENSITY C. The breasts are heterogeneously dense, which may obscure small masses. MAMMOGRAPHY FINDINGS Bilateral: Benign-appearing calcifications noted. There are no suspicious masses, calcifications, or other findings in the breast. IMPRESSION: * No evidence of malignancy with benign findings. RECOMMENDATIONS Bilateral * Annual screening mammography. OVERALL ASSESSMENT CATEGORY BI-RADS-2: Benign. The [employer] recommends annual screening mammography beginning at age 40 for women with average risk of breast cancer. ELECTRONICALLY SIGNED: Cain Hammond M.D. on 04/17/2025 at 08:55:14 PM PT Interpreting Station ID: [id number]
== END ==
PROVIDERS: PCP Internal Medicine; Referring Provider Internal Medicine; Visit Provider Internal Medicine
DX: Z12.31 Encounter for screening mammogram for malignant neoplasm of breast (principal); R92.333 Mammographic heterogeneous density, bilateral breasts
CPT/HCPCS: 77063; 77067

== ENCOUNTER 2025-06-05 14:13 | Emergency (ER) | payer MEDICARE, SELFPAY ==
[2023-01-19 18:58] VITALS: BMI 28.5
[2025-06-05 14:45] VITALS: BP 178/74; PULSE 98; RESP 18; TEMP 37.1; O2SAT 99; BMI 29.8
--- NOTE | 2025-06-05 18:21 | ED_ITS ---
<Statement entered by Kvng Jordan MD - 06/27/25 07:32> I was personally available for consultation in the Department at the time the patient was seen HPI - Abdominal Pain General Chief Complaint: Abdominal Pain Stated Complaint: Stomach pain, on and off constipation and Diarrhea Time Seen by Provider: 06/05/25 17:10 Source: patient Mode of arrival: Ambulatory History of Present Illness HPI narrative: 80-year-old female presents to the ED with 1 week of constipation, followed by 3 episodes of diarrhea, again constipation. Patient started having diarrhea after a few days of constipation and no stools. She took 2 Imodium, has been constipated for the last 2 days with no stools. No fever, chills, nausea, vomiting, abdominal pain. Patient is tolerating p.o. well. Patient states that she has a sensitive GI tract at baseline and easily tends to get constipated and have diarrhea as well. She did not try any laxatives due to that. Patient has tried Dulcolax with extreme diarrhea in the past. Related Data Home Medications ?Medication ?Instructions ?Recorded ?Confirmed estradiol 0.5 mg tablet 0.5 mg PO DAILY 01/06/23 levothyroxine 100 mcg tablet 100 mcg PO DAILY 01/06/23 02/17/25 lisinopril 20 mg tablet 40 mg PO QAM 01/06/23 omeprazole 20 mg capsule,delayed 20 mg PO DAILY 02/17/25 release Previous Rx's ?Medication ?Instructions ?Recorded benzonatate 200 mg capsule 200 mg PO BID PRN cough #28 caps 02/17/25 Allergies Allergy/AdvReac Type Severity Reaction Status Date / Time erythromycin base AdvReac Severe Gastrointestinal Verified 02/17/25 15:34 Upset codeine AdvReac Verified 02/17/25 15:34 narcotics AdvReac Nausea & Uncoded 02/17/25 15:34 Vomiting Review of Systems Constitutional Constitutional: Denies chills, Denies fatigue, Denies fever(s), Denies frequent falls, Denies lethargy and Denies weakness Eyes Eyes: Denies change in vision, Denies eye discharge, Denies irritation and Denies loss of vision ENT Ears, Nose, Mouth, and Throat: Denies change in voice, Denies dizziness, Denies neck pain, Denies sore throat and Denies throat swelling Cardiovascular Cardiovascular: Denies chest pain, Denies irregular heart rhythm, Denies lightheadedness, Denies palpitations, Denies dyspnea, Denies dyspnea on exertion and Denies orthopnea Respiratory Respiratory: Denies cough, Denies dyspnea, Denies dyspnea on exertion and Denies wheezing Gastrointestinal Gastrointestinal: Denies abdominal pain, Denies change in bowel habits, Reports constipation, Reports diarrhea, Denies nausea and Denies vomiting Musculoskeletal Musculoskeletal: Denies neck pain and Denies numbness Integumentary/Breasts Skin/Breast: Denies pruritus, Denies erythema, Denies rash and Denies wounds Neurologic Neurologic: Denies behavioral changes, Denies confusion, Denies dizziness, Denies frequent falls, Denies loss of vision, Denies numbness and Denies weakness Psychiatric Psychiatric: Denies anxiety, Denies behavioral changes, Denies confusion, Denies depression, Denies homicidal ideation and Denies suicidal ideation Endocrine Endocrine: Denies fatigue, Denies flushing and Denies palpitations Hematologic/Lymphatic Hematologic/Lymphatic: Denies easy bruising Allergic/Immunologic Allergic/Immunologic: Denies urticaria, Denies throat swelling and Denies wheezing Patient History Medical History COVID-19 (06/2022) Sciatica Grieving Hypothyroidism Hepatitis C (1998) GERD (gastroesophageal reflux disease) HLD (hyperlipidemia) HTN (hypertension) Surgical History Hx of tonsillectomy Hx of dilation and curettage (1965) History of hysterectomy (1984) Hx of appendectomy (1958) Hx of bilateral cataract extraction Social History household members: none alcohol intake: current Smoking Status: Never smoker alcohol intake frequency: holidays/special occasions only Exam Narrative Exam Narrative: Const General:?cooperative, healthy appearing and comfortable [facility] Head:?normal to inspection Ears:?hearing grossly normal bilaterally Nose:?external nose normal Face and sinus:?normal facial exam and sinuses nontender Mouth:?oral mucosae normal Throat:?posterior oropharynx normal Eyes General:?appearance normal, both eyes and all related structures Neck Neck:?normal visual inspection and no lymphadenopathy noted Resp Effort & Inspection:?normal respiratory effort Auscultation:?clear to auscultation bilaterally Cardio Rate:?regular rate Rhythm:?regular rhythm GI Abdomen is soft, nondistended, nontender to palpation Neuro General:?patient alert, patient awake and patient oriented x3 Initial Vital Signs Initial Vital Signs: Vital Signs Temperature 98.8 F 06/05/25 14:45 Pulse Rate 98 H 06/05/25 14:45 Respiratory Rate 18 06/05/25 14:45 Blood Pressure 178/74 H 06/05/25 14:45 Pulse Oximetry 99 06/05/25 14:45 Oxygen Delivery Method Room Air 06/05/25 14:45 Course Vital Signs Vital signs: Vital Signs - 8 hr 06/05/25 14:45 Temperature 98.8 F Pulse Rate 98 H Respiratory Rate 18 Blood Pressure 178/74 H Pulse Oximetry 99 Oxygen Delivery Method Room Air MDM - Abdominal Pain MDM Narrative Medical decision making narrative: 80-year-old female presents to the ED with 1 week of constipation, followed by 3 episodes of diarrhea, again constipation. Abdominal exam is benign. It appears that patient has had chronic constipation with bouts of diarrhea in between. Recommend that patient refrain from using Imodium, instead you use a gentle laxative such as MiraLax for the next few days to soften the stool. Recommend follow-up with PCP, GI specialist for further evaluation. ED return precautions were discussed with patient. Patient verbalized understanding. Medical records reviewed: Yes Discharge Plan Departure Patient Disposition: Home Clinical Impression: Constipation Instructions: DI for Constipation Activity Restrictions/Additional Instructions: You were evaluated in the emergency department today for constipation and diarrhea. You may try MiraLax nightly for the next several days to soften the stool and passive easily. If the MiraLax does not work in 3-4 days, you may try docusate. Please continue to drink lots of water since MiraLax requires a lot of water for it to work properly. It is common when you are extremely constipated to have watery stool which leaks around the hard stool. Please refrain from taking Imodium, since this could again push you to be further constipated. Please follow-up with your PCP as well for further evaluation and treatment. Return to the ED if you have worsening symptoms. Prescriptions: No Action benzonatate 200 mg capsule 200 mg PO BID PRN (Reason: cough) Qty: 28 0RF lisinopril 20 mg Tablet 40 mg PO QAM levothyroxine 100 mcg Tablet 100 mcg PO DAILY Patient Comments: Takes 2 tabs one day a week on Wednesday omeprazole 20 mg Capsule,Delayed Release(Dr/Ec) 20 mg PO DAILY estradiol 0.5 mg Tablet 0.5 mg PO DAILY Rx Instructions: off 5 days; repeat cycle Referrals: Lianne Sanchez MD [Primary Care Provider, Pediatrics] Stand Alone Forms: Patient Portal/API
[2025-06-05 18:57] VITALS: BP 162/87; PULSE 99; RESP 15; O2SAT 97
== END 2025-06-05 18:58 | disposition home or self-care (01) ==
PROVIDERS: Emergency Provider Student in an Organized Health Care Education/Training Program; PCP Internal Medicine
DX: K59.00 Constipation, unspecified (principal)
CPT/HCPCS: 99281

== ENCOUNTER → 2025-07-27 16:13 | Outpatient (CLI) | payer MEDICARE, SELFPAY ==
[2023-01-19 18:58] VITALS: BMI 28.5
[2025-07-27 18:25] LABS: Blood Urea Nitrogen 26 mg/dL (7-17); Calcium 10.6 mg/dL (8.4-10.2); Carbon Dioxide 27 mmol/L (22-32); Chloride 102 mmol/L (98-107); Estimated Glomerular Filt Rate 54 mL/min (>60); Glucose 142 mg/dL (70-99); HEMOLYSIS < 15 (0-50); Potassium 5.2 mmol/L (3.4-5.1); Sodium 136 mmol/L (137-145)
[2025-07-27 18:26] LABS: Alanine Aminotransferase 19 IU/L (<35); Albumin 4.1 g/dL (3.5-5.0); Albumin Globulin Ratio 1.5 (1.0-2.8); Alkaline Phosphatase 84 U/L (38-126); Blood Urea Nitrogen 26 mg/dL (7-17); Estimated Glomerular Filt Rate 53 mL/min (>60); Globulin 2.8 g/dL (1.7-4.1); HEMOLYSIS < 15 (0-50); Total Protein 6.9 g/dL (6.3-8.2)
[2025-07-27 18:33] LABS: Hemoglobin A1C% w Est Avg Glu 6.1 % (4.0-6.0)
[2025-07-27 19:02] LABS: TSH w/ Reflex to FT4 0.02 uIU/mL (0.47-4.68)
[2025-07-27 19:28] LABS: Free T4, Direct Thyroxine 2.10 ng/dL (0.78-2.19)
== END ==
PROVIDERS: PCP Internal Medicine; Referring Provider Physician Assistant Medical; Visit Provider Physician Assistant Medical
DX: R73.01 Impaired fasting glucose (principal); E03.8 Other specified hypothyroidism; B35.1 Tinea unguium; I10 Essential (primary) hypertension
CPT/HCPCS: 36415; 80048; 80076; 82565; 83036; 84439; 84443; 84520

== ENCOUNTER → 2025-10-02 14:24 | Outpatient (CLI) | payer MEDICARE, SELFPAY ==
[2023-01-19 18:58] VITALS: BMI 28.5
[2025-10-02 16:00] LABS: Alanine Aminotransferase 18 IU/L (<35); Albumin 4.4 g/dL (3.5-5.0); Albumin Globulin Ratio 1.6 (1.0-2.8); Alkaline Phosphatase 80 U/L (38-126); Blood Urea Nitrogen 26 mg/dL (7-17); Estimated Glomerular Filt Rate 49 mL/min (>60); Globulin 2.7 g/dL (1.7-4.1); HEMOLYSIS < 15 (0-50); Total Protein 7.1 g/dL (6.3-8.2)
== END ==
PROVIDERS: PCP Internal Medicine; Referring Provider Physician Assistant Medical; Visit Provider Physician Assistant Medical
DX: B35.1 Tinea unguium (principal)
CPT/HCPCS: 36415; 80076; 82565; 84520